=== PATIENT | male | born 1950 | race Caucasian/White ===

== ENCOUNTER 2017-01-13 15:08 | Emergency (ER) | payer BC ==
[~2017-01-13] VITALS: Ht 188 cm; Wt 165.4 kg
[2017-01-13] MEDS ORDERED: ARED (15:20)
[2017-01-13] MEDS ORDERED: ATEN25TA (15:20)
[2017-01-13] MEDS ORDERED: ASPI81CH PO (15:20)
[2017-01-13] MEDS ORDERED: HYDR25TA6 (15:20)
[2017-01-13] MEDS ORDERED: SIMV20TA2 (15:20)
[2017-01-13] MEDS ORDERED: CENTTAB (15:20)
[2017-01-13] MEDS ORDERED: METF500T13 (15:20)
[2017-01-13] MEDS ORDERED: SERT-138 (15:23)
[2017-01-13] MEDS ORDERED: PERCOCET 5MG/325MG TAB PO ONE (16:00)
[2017-01-13] MEDS ORDERED: PERCOCET 5MG/325MG TAB As Ordered ONE (16:01)
[2017-01-13 16:31] VITALS: BP 134/73
[2017-01-13] MEDS ORDERED: PERC5TAB12 PO (16:38)
--- NOTE | 2017-01-13 17:02 | REP ---
Pelvis and right hip: Three views: History: Nontraumatic right hip pain. Findings: AP and frog-leg views of the right hip are obtained along with an AP view of the pelvis. There is a benign exostosis superior to the acetabulum along the lateral cortex of the iliac bone. This measures approximately 3.2 cm in length. An accessory ossicle is seen at its tip superior and lateral to the hip articulation. Femoral head is smooth and rounded and hip joint spaces are preserved. There is some sclerotic change in the symphysis and a cyst is seen in the symphysis. Sacrum and SI joints are intact. There are mild degenerative disc changes L4-5. Impression: There is a benign appearing osteochondroma 3.2 cm in greatest diameter along the lateral cortex of the right iliac bone just above the acetabulum. No acute bony abnormality. Signed by Yonatan Diaz MD 01/13/2017 05:03 P
== END 2017-01-13 16:45 | disposition home or self-care (01) ==
LOC: M ED 15:08
DX: D16.8 Benign neoplasm of pelvic bones, sacrum and coccyx (principal); M70.61 Trochanteric bursitis, right hip; E11.9 Type 2 diabetes mellitus without complications; I10 Essential (primary) hypertension; E78.00 Pure hypercholesterolemia, unspecified; Z90.89 Acquired absence of other organs; Z87.891 Personal history of nicotine dependence; Z79.82 Long term (current) use of aspirin; Z79.899 Other long term (current) drug therapy

== ENCOUNTER → 2017-01-17 | Outpatient (REF) | payer BC ==
[~2017-01-17] MED LIST: ARED; ASPI81CH PO; ATEN25TA; CENTTAB; HYDR25TA6; METF500T13; PERC5TAB12 PO; SERT-138; SIMV20TA2
[2017-01-17 18:22] LABS: BLOOD UREA NITROGEN 15 MG/DL (7-18); CREATININE FOR GFR 0.91 MG/DL (0.70-1.30); GLOMERULAR FILTRATION RATE > 60.0 (>49)
== END ==
LOC: M LABDRAW1 15:56
PROVIDERS: ATTEND Physician Assistant
DX: M25.551 Pain in right hip (principal)

== ENCOUNTER 2017-05-26 14:10 | Inpatient (IN) | payer BC, MEDICARE ==
[~2017-05-26] VITALS: Ht 188 cm; Wt 127.5 kg
[2017-05-26] MEDS ORDERED: VENTAER (14:59)
[2017-05-26] MEDS ORDERED: AUGM875T28 PO (14:59)
[2017-05-26] MEDS ORDERED: IPRATROPIUM 0.5MG/ALBUTEROL 2.5MG INH SOL UD 3ML (DUONEB)(J7620) NEB ONE (16:45)
[2017-05-26] MEDS ORDERED: methylPREDNISolone INJ 125 MG/2 ML VIAL (J2930) IV ONE (16:45)
[2017-05-26] MEDS ORDERED: PIPERACILLIN/TAZOBACTAM SOD 4.5 GM in APPROPRIATE DILUENT 1 EA IV ONE (16:45)
[2017-05-26] MEDS ORDERED: ALBUTEROL SULFATE 2.5 MG/0.5 ML INH NEB SOLN INH ONE (16:45)
--- NOTE | 2017-05-26 16:55 | REP ---
Chest two views HISTORY: Shortness of breath Comparison: None A large left pleural effusion is present. Underlying atelectasis or infiltrate cannot be excluded. An increase in interstitial markings is present in the right lung likely representing chronic interstitial change. There is blunting of the right costophrenic angle due to a small pleural effusion. heart size cannot be evaluated. The pulmonary vasculature in the right lung is normal in appearance. The bony structure is intact. IMPRESSION: 1. Large left pleural effusion. Underlying atelectasis or infiltrate cannot be excluded. 2. There is an increase in interstitial markings in the right lung likely representing chronic interstitial change. 3. Small right pleural effusion. Signed by Ollie Hermosillo MD 05/26/2017 04:47 P
[2017-05-26 17:13] LABS: ABG BASE EXCESS 7.9 (-2.0-2.0); ABG HCO3 31.9 MEQ/L (22.0-26.0); ABG PARTIAL PRESSURE CO2 41.8 mmHg (35.0-45.0); ABG STANDARD HCO3 31.8 MEQ/L (22.0-26.0); ABG TOTAL CO2 33.2 MEQ/L (23.0-31.0); ABG pH (ARTERIAL) 7.501 UNITS (7.350-7.450)
[2017-05-26 17:33] LABS: BASO # 0.1 10^3/uL (0.0-0.2); BASO % 0.5 % (0.0-1.0); EOS # 0.2 10^3/uL (0.0-0.50); EOS % 1.6 % (0.0-3.0); IMMATURE GRANULOCYTE % 0.7 % (0-0); LYMPH # 1.8 10^3/uL (1.5-4.5); LYMPH % 15.8 % (24.0-44.0); MEAN CORPUSCULAR HEMOGLOBIN 29.3 pg (27.0-33.0); MEAN CORPUSCULAR HGB CONC 35.4 g/dl (32.0-36.5); MEAN CORPUSCULAR VOLUME 82.8 fl (80.0-96.0); MONO # 1.1 10^3/uL (0.0-0.8); MONO % 9.3 % (0.0-5.0); NEUTROPHILS # 8.1 10^3/uL (1.8-7.7); NEUTROPHILS % 72.1 % (36.0-66.0); PLATELET COUNT, AUTOMATED 473 10^3/uL (150-450); RED CELL DISTRIBUTION WIDTH 12.1 % (11.5-14.5); WHITE BLOOD COUNT 11.3 10^3/uL (4.0-10.0)
[2017-05-26 17:52] LABS: INR 1.05
[2017-05-26 18:00] LABS: ANION GAP 8 MEQ/L (8-16); BLOOD UREA NITROGEN 9 MG/DL (7-18); CALCIUM LEVEL 9.3 MG/DL (8.8-10.2); CARBON DIOXIDE LEVEL 35 MEQ/L (21-32); CHLORIDE LEVEL 90 MEQ/L (98-107); CREATININE FOR GFR 0.63 MG/DL (0.70-1.30); GLOMERULAR FILTRATION RATE > 60.0 (>49); GLUCOSE, FASTING 184 MG/DL (80-110); POTASSIUM SERUM 3.2 MEQ/L (3.5-5.1); SODIUM LEVEL 133 MEQ/L (136-145)
--- NOTE | 2017-05-26 18:02 | REP ---
CT study of the chest with out IV contrast: History: Abnormal chest x-ray. Comparison chest radiographs from earlier this date. No other comparison imaging. Findings: There is a large left pleural effusion opacifying much of the left hemithorax. This may be partially loculated as there is an area of partially aerated left upper lobe extending out to the chest wall at mid lateral chest level. There is a small quantity of pericardial fluid and a small right pleural effusion. There is some mediastinal lymphadenopathy in the pretracheal and subcarinal region. The largest of these nodes is a subcarinal node which measures 1.9 x 2.2 cm. There are air bronchograms in the atelectatic left lower lobe. There are several small pulmonary nodules in the remaining aerated left upper lobe along with this interstitial septal thickening. This may reflect edema or conceivably lymphangitic spread of tumor. There are multiple right lung nodules as well. These include to right lower lobe nodules measuring 1.0 and 1.2 cm and a ill-defined opacity in the right lower lobe measuring 2.1 cm in diameter. Multiple tiny sub-centimeter nodules are seen on the right. Bone window settings show no bony destructive lesion. There is fullness in the left adrenal gland which is not completely included in the imaging field of view. This measures up to 4 cm in greatest diameter. Impression: Large possibly loculated left pleural effusion. Mediastinal lymphadenopathy and pulmonary nodules consistent with metastatic disease. Small right pleural effusion and tiny pericardial effusion. Signed by Yonatan Diaz MD 05/28/2017 12:31 P
[2017-05-26 18:05] LABS: ALBUMIN 3.2 GM/DL (3.2-5.2); ALBUMIN/GLOBULIN RATIO 0.68 (1.00-1.93); ALKALINE PHOSPHATASE 77 U/L (45-117); ALT/SGPT 20 U/L (12-78); AST/SGOT 6 U/L (7-37); BILIRUBIN,DIRECT < 0.1 MG/DL (0.0-0.2); BILIRUBIN,TOTAL 0.4 MG/DL (0.2-1.0); THYROXINE (T4) 10.8 UG/DL (4.5-12.0); TOTAL PROTEIN 7.9 GM/DL (6.4-8.2)
[2017-05-26] MEDS ORDERED: SERT-138 PO (18:56)
[2017-05-26] MEDS ORDERED: VENTAER INH (18:56)
[2017-05-26] MEDS ORDERED: ASPI1TAB15 PO (18:56)
[2017-05-26] MEDS ORDERED: HYDR25TAB PO (18:56)
[2017-05-26] MEDS ORDERED: VITMTA PO (18:56)
[2017-05-26] MEDS ORDERED: AMOX875T2 PO (18:56)
[2017-05-26] MEDS ORDERED: METF500T13 PO (18:56)
[2017-05-26] MEDS ORDERED: HYDR5LIQ2 PO (18:56)
[2017-05-26] MEDS ORDERED: OCUVTAB4 PO (18:56)
[2017-05-26] MEDS ORDERED: METO1TAB32 PO (18:56)
[2017-05-26] MEDS ORDERED: SIMV20TA2 PO (18:56)
[2017-05-26] MEDS ORDERED: GLUCAGON FOR INJ 1 MG VIAL (J1610) SC PRN (19:15)
[2017-05-26] MEDS ORDERED: DEXTROSE 50% 50 ML SYRINGE IV PRN (19:15)
[2017-05-26] MEDS ORDERED: GLUCOSE 4 GM CHEW TABLET PO PRN (19:15)
[2017-05-26] MEDS ORDERED: ONDANSETRON 4MG/2ML VIAL (J2405) IV PRN (19:15)
[2017-05-26] MEDS ORDERED: PERCOCET 5MG/325MG TAB PO PRN (19:15)
[2017-05-26] MEDS ORDERED: POTASSIUM CHLORIDE 10 MEQ SR TABLET PO ONE (19:15)
[2017-05-26] MEDS ORDERED: GASTROGRAFIN SOLUTION 30ML (Q9963) PO ONE (20:00)
[2017-05-26] MEDS ORDERED: GASTROGRAFIN SOLUTION 30ML PO ONE (20:30)
[2017-05-26] MEDS ORDERED: PROHANCE 279.3MG/ML 15ML VIAL (A9576) As Ordered ONE (20:32)
--- NOTE | 2017-05-26 20:52 | HPEPDOC ---
General Date of Admission May 26, 2017 at 19:11 Primary Care Physician: JOHN CHINCHILLA M.D. Attending Physician: MIKEY MITCHELL MD Chief Complaint The patient is a 67-year-old male admitted with a reason for visit of Pleural Effusion On Left. History of Present Illness 67-year-old male with past medical history of hypertension, dyslipidemia, diabetes mellitus, and anxiety/depression presents to the ER with a chief complaint of worsening shortness of breath over the last 10 days. The patient states that he originally went to see his PCP Dr. Chinchilla on 05/17 and was prescribed Augmentin for his complaint of shortness of breath and cough. However , the patient's symptoms are not improved and he presents to the ER for further evaluation and management. During this time, the patient states that he has lost about 20 pounds over the last 6 months but notes that this has been intentional. The patient denies any complaints of fevers, chills, chest pain, palpitations, abdominal pain, lower extremity swelling, or any nausea/vomiting/ diarrhea. In the ER, a CT scan of the chest revealed large possibly loculated left pleural effusion with mediastinal lymphadenopathy and pulmonary nodules consistent with metastatic disease. The patient will be admitted to the hospitalist service, and a consult has been placed a thoracic surgery for further evaluation and monitoring. Home Medications Scheduled (Preservision Areds) 1 Tab Tab, 1 TAB PO BID, (Reported) Amoxicillin/Clavulanate Potas (Amoxicillin/Clavulanate P 875-125 mg) 1 Tab Tab, 875 MG PO BID, (Reported) Aspirin (Aspirin) 81 Mg Tab, 81 MG PO DAILY, (Reported) Hydrochlorothiazide (Hydrochlorothiazide) 25 Mg Tab, 25 MG PO DAILY, (Reported) Metformin Hydrochloride (Metformin HCl) 500 Mg Tab, 500 MG PO BID, (Reported) Metoprolol Succinate (Metoprolol Succinate ER) 25 Mg Tab, 25 MG PO DAILY, ( Reported) Multivitamins *[facility] STOCKED* (Thera M Plus *[facility] STOCKED*) 1 Tab Tab, 1 TAB PO DAILY, (Reported) Sertraline HCl (Sertraline HCl) 100 Mg Tab, 100 MG PO DAILY, (Reported) Simvastatin (Simvastatin) 20 Mg Tab, 20 MG PO QHS, (Reported) Scheduled PRN Albuterol Sulfate (Ventolin Hfa) 108 Mcg/Act Aer, 2 SPRAYS INH QID PRN for SHORTNESS OF BREATH, (Reported) Chlorphenir/Hydrocod Polistir (Hydrocodone Polistirex/Ch 10-8 mg/5Ml) 1 Liq Liq , 5 ML PO BID PRN for COUGH, (Reported) Allergies Coded Allergies: No Known Allergies (Verified , 03/09/05) Past Medical History Medical History As noted in HPI. Surgical History Left knee meniscal repair. Family History Father had stomach cancer in his 70s. Social History * Smoker: former Smoker (smoked 1-1/2-2 packs per day for 20+ years, quit 20 years ago) Alcohol: Denies Drugs: denies Review of Symptoms Other systems 10 point review of systems negative unless otherwise specified in HPI. Physical Examination General Exam: Positive: Alert, Cooperative, No Acute Distress ENT Exam: Positive: Atraumatic, Mucous membr. moist/pink Neck Exam: Negative: JVD Chest Exam: Positive: Diminished (diminished breath sounds on the left side.) Heart Exam: Positive: Rate Normal, Normal S1, Normal S2 Abdomen Exam: Positive: Soft Extremity Exam: Negative: Tenderness, Swelling Psych Exam: Positive: Oriented x 3 Vital Signs Vital Signs Date Time Temp Pulse Resp B/P (MAP) Pulse Ox O2 Delivery O2 Flow Rate FiO2 05/26/17 19:15 109 18 125/78 (94) 96 05/26/17 18:45 Nasal Cannula 4.0 05/26/17 14:11 96.6 Laboratory Data Labs 24H Laboratory Tests 2 05/26/17 16:44: Blood Gas Bicarbonate Standard 31.8H, Arterial Blood pH 7.501H, Arterial Blood Partial Pressure CO2 41.8, Arterial Blood Partial Pressure O2 83.0, Arterial Blood Total CO2 33.2H, Arterial Blood HCO3 31.9H, Arterial Blood Base Excess 7.9H, Arterial Blood Oxygen Saturation 97.0 05/26/17 17:02: Immature Granulocyte % (Auto) 0.7H, White Blood Count 11.3H, Red Blood Count 5.18, Hemoglobin 15.2, Hematocrit 42.9, Mean Corpuscular Volume 82.8, Mean Corpuscular Hemoglobin 29.3, Mean Corpuscular Hemoglobin Concent 35.4, Red Cell Distribution Width 12.1, Platelet Count 473H, Neutrophils (%) (Auto) 72.1H, Lymphocytes (%) (Auto) 15.8L, Monocytes (%) (Auto) 9.3H, Eosinophils (%) (Auto) 1.6, Basophils (%) (Auto) 0.5, Neutrophils # (Auto) 8.1H, Lymphocytes # (Auto) 1.8, Monocytes # (Auto) 1.1H, Eosinophils # (Auto) 0.2, Basophils # (Auto) 0.1, Immature Granulocyte # (Auto) 0.1H, Nucleated Red Blood Cells % (auto) 0.0, Prothrombin Time 13.8, Prothromb Time International Ratio 1.05, Anion Gap 8, Glomerular Filtration Rate > 60.0, Lactic Acid Level 1.9, Blood Urea Nitrogen 9 , Creatinine 0.63L, Sodium Level 133L, Potassium Level 3.2L, Chloride Level 90L , Carbon Dioxide Level 35H, Calcium Level 9.3, Total Creatine Kinase 47, Aspartate Amino Transf (AST/SGOT) 6L, Alanine Aminotransferase (ALT/SGPT) 20, Alkaline Phosphatase 77, Total Bilirubin 0.4, Direct Bilirubin < 0.1, Creatine Kinase MB 1.0, Creatine Kinase MB Relative Index 2.12, Troponin I < 0.02, NT-Pro -B-Type Natriuretic Peptide 135H, Total Protein 7.9, Albumin 3.2, Albumin/ Globulin Ratio 0.68L, Thyroid Stimulating Hormone (TSH) 2.080, Thyroxine (T4) 10.8 CBC/BMP Laboratory Tests 05/26/17 17:02 Red Blood Count 5.18, Mean Corpuscular Volume 82.8, Mean Corpuscular Hemoglobin 29.3, Mean Corpuscular Hemoglobin Concent 35.4, Red Cell Distribution Width 12.1 , Neutrophils (%) (Auto) 72.1 H, Lymphocytes (%) (Auto) 15.8 L, Monocytes (%) ( Auto) 9.3 H, Eosinophils (%) (Auto) 1.6, Basophils (%) (Auto) 0.5, Neutrophils # (Auto) 8.1 H, Lymphocytes # (Auto) 1.8, Monocytes # (Auto) 1.1 H, Eosinophils # (Auto) 0.2, Basophils # (Auto) 0.1, Calcium Level 9.3, Total Creatine Kinase 47 Microbiology Microbiology 05/26/17 Blood Culture, Received Pending 05/26/17 Blood Culture, Received Pending 12/1/17 Gram Stain, Received Pending 05/26/17 Sputum Culture, Received Pending 05/26/17 Influenza Virus Type A Antigen - Final, Complete 05/26/17 Influenza Virus Type B Antigen - Final, Complete Plan / VTE VTE Prophylaxis Ordered?: Yes Plan Plan SOB 2/2 Large possibly loculated left pleural effusion, pulmonary nodules consistent with metastatic disease CT chest noted I did extensively discuss the results with the patient and his significant other at the bedside. All questions answered to their satisfaction At this time, we will treat the patient empirically for a community-acquired pneumonia In addition, thoracic surgery has been consulted for possible drainage of the aforementioned effusion and cytologic studies will be sent thereafter In the meantime, a CT scan of the abdomen/pelvis, MRI of the brain, and bone scan has been ordered as part of a metastatic workup. We will continue to monitor the patient's progress Hypertension stable Continue metoprolol Dyslipidemia Continue statin Diabetes mellitus Continue insulin sliding scale Anxiety/depression, stable Continue Zoloft DVT prophylaxis Heparin subcutaneous The patient will be admitted under the service of Dr. Mitchell, who will begin to follow the patient on 05/27/17 at 7 AM. ALFRED NDIAYE MD May 26, 2017 20:51
--- NOTE | 2017-05-26 21:30 | REPUSA ---
MRI of the brain. Clinical history: metastatic disease. Technique: Multiecho multiplanar MRI images of the brain were obtained before and after administratio n of contrast. Diffusion weighted images with ADC mapping was also obtained. Findings: The ventricles and sulci are symmetric bilaterally. The brain parenchyma demonstrates uniform and nor mal signal on all sequences. There is no midline shift, mass effect, or extra-axial fluid collection. The midline intracranial structures do not demonstrate any gross abnormalities. The cervical cranial junction is intact. The orbits are unremarkable. The visualized paranasal sinuses and mastoid air ce lls are clear. The osseous structures and superficial soft tissues are unremarkable. The vascular str uctures demonstrate appropriate flow voids. There are no abnormal enhancing mass lesions appreciated. Impression: Normal MRI of the Brain.
[2017-05-26] MEDS ORDERED: ISOVUE-370 76% 100ML VIAL (Q9967) As Ordered ONE (23:23)
[2017-05-26] MEDS: SIMVASTATIN 20 MG TAB PO SCH (23:38)
[2017-05-26] MEDS: CEFTRIAXONE SOD 1 GM in APPROPRIATE DILUENT 1 EA IV SCH (23:39)
[2017-05-26] MEDS: OCUVITE 1 TAB PO SCH (23:45)
[2017-05-27] VITALS: BP 144/79
[2017-05-27] MEDS: HumaLOG INSULIN (NovoLOG) PER UNIT SC SCH ×5 (00:07→21:14)
[2017-05-27] MEDS: AZITHROMYCIN INJ 500 MG, VIAL MATE ADAPTER 1 EACH in D5W 250 ML IV SCH ×2 (00:54→21:08)
[2017-05-27 04:00] VITALS: BP_SYST 144; BP_SYST 149; BP_DIAS 79
[2017-05-27] MEDS: HEPARIN SOD (PORCINE) 5000 UNITS/ML VIAL SC SCH ×3 (04:57→21:08)
[2017-05-27 05:35] LABS: MEAN CORPUSCULAR HEMOGLOBIN 29.4 pg (27.0-33.0); MEAN CORPUSCULAR HGB CONC 35.6 g/dl (32.0-36.5); MEAN CORPUSCULAR VOLUME 82.6 fl (80.0-96.0); PLATELET COUNT, AUTOMATED 465 10^3/uL (150-450); RED CELL DISTRIBUTION WIDTH 12.1 % (11.5-14.5); WHITE BLOOD COUNT 8.7 10^3/uL (4.0-10.0)
[2017-05-27 06:03] LABS: ALBUMIN 2.9 GM/DL (3.2-5.2); ALBUMIN/GLOBULIN RATIO 0.62 (1.00-1.93); ALKALINE PHOSPHATASE 72 U/L (45-117); ALT/SGPT 21 U/L (12-78); ANION GAP 7 MEQ/L (8-16); AST/SGOT 7 U/L (7-37); BILIRUBIN,TOTAL 0.4 MG/DL (0.2-1.0); BLOOD UREA NITROGEN 10 MG/DL (7-18); CALCIUM LEVEL 9.5 MG/DL (8.8-10.2); CARBON DIOXIDE LEVEL 36 MEQ/L (21-32); CHLORIDE LEVEL 90 MEQ/L (98-107); GLOMERULAR FILTRATION RATE > 60.0 (>49); GLUCOSE, FASTING 247 MG/DL (80-110); MAGNESIUM LEVEL 2.3 MG/DL (1.8-2.4); POTASSIUM SERUM 3.2 MEQ/L (3.5-5.1); SODIUM LEVEL 133 MEQ/L (136-145); TOTAL PROTEIN 7.6 GM/DL (6.4-8.2)
[2017-05-27] MEDS ORDERED: POTASSIUM CHLORIDE 10 MEQ SR TABLET PO ONE (06:15)
--- NOTE | 2017-05-27 07:37 | IPNPDOC ---
Text Note Date of Service The patient was seen on 05/27/17. NOTE Subjective: Patient seen and examined at bedside. No new medical complaints. Still complains of cough occasionally productive of clear sputum. Objective: General: NAD, lying comfortably in bed HEENT: NC/AT, EOMI Lungs: diminished breath sounds left Heart: +S1S2, RRR Abd: soft, NT, obese, +BS Ext: no edema Assessment/Plan: 67 yo male of shortness of breath, found to have large, possibly loculated pleural effusion with multiple pulmonary nodules consistent with metastatic disease. #SOB - 2/2 Large left pleural effusion - supplemental oxygen as needed - titrate maintain O2 sats>90% - CTS c/s pending #pulmonary nodules - concern for metastatic disease - champagne scan pending - o/p colonoscopy #PNA - continue with empiric antimicrobial therapy #DVT prophylaxis - heparin SC #HTN - continue metoprolol #dyslipidemia - continue statin therapy #DM - ISS, modified diet #Anxiety/depression - Continue Zoloft as per home regimen VS,Fishbone, I+O VS, Fishbone, I+O Laboratory Tests 05/26/17 17:02 Red Blood Count 5.18, Mean Corpuscular Volume 82.8, Mean Corpuscular Hemoglobin 29.3, Mean Corpuscular Hemoglobin Concent 35.4, Red Cell Distribution Width 12.1 , Neutrophils (%) (Auto) 72.1 H, Lymphocytes (%) (Auto) 15.8 L, Monocytes (%) ( Auto) 9.3 H, Eosinophils (%) (Auto) 1.6, Basophils (%) (Auto) 0.5, Neutrophils # (Auto) 8.1 H, Lymphocytes # (Auto) 1.8, Monocytes # (Auto) 1.1 H, Eosinophils # (Auto) 0.2, Basophils # (Auto) 0.1, Calcium Level 9.3, Total Creatine Kinase 47 05/27/17 04:53 Red Blood Count 4.93, Mean Corpuscular Volume 82.6, Mean Corpuscular Hemoglobin 29.4, Mean Corpuscular Hemoglobin Concent 35.6, Red Cell Distribution Width 12.1 , Calcium Level 9.5, Aspartate Amino Transf (AST/SGOT) 7, Alanine Aminotransferase (ALT/SGPT) 21, Alkaline Phosphatase 72, Total Bilirubin 0.4, Total Protein 7.6, Albumin 2.9 L Vital Signs Date Time Temp Pulse Resp B/P (MAP) Pulse Ox O2 Delivery O2 Flow Rate FiO2 05/27/17 04:00 97.4 96 20 149/79 (102) 95 Room Air 05/27/17 00:00 2.0 MIKEY MITCHELL MD May 27, 2017 07:37
[2017-05-27 08:00] VITALS: BP 126/83
[2017-05-27] MEDS: MOM 30ML SUSPENSION UDC PO SCH (09:00)
[2017-05-27] MEDS: MULTIVITAMINS/MINERALS THERAP 1 TAB PO SCH (09:12)
[2017-05-27] MEDS: METOPROLOL SUCC *XL* 25MG TAB (TopROL *XL*) PO SCH (09:12)
[2017-05-27] MEDS: OCUVITE 1 TAB PO SCH ×2 (09:12→21:08)
[2017-05-27] MEDS: SERTRALINE 100 MG TAB PO SCH (09:12)
--- NOTE | 2017-05-27 10:16 | REP ---
ADULT BONE SURVEY, 18 VIEWS: HISTORY: Evaluate for metastases. SKULL: There is no acute fracture or bone lesion. The sinuses are clear. CERVICAL SPINE: There is no acute fracture or subluxation. The C3-4 through C7-T1 intervertebral discs are decreased in height consistent with disc degeneration. Osteophytes are present on C3 through C7. BILATERAL RIBS: The lateral ribs are poorly visualized. There is no acute fracture or bone lesion. There is almost complete opacification of the left hemithorax. PELVIS: There is no acute fracture or dislocation. There is narrowing of the joint spaces. FEMURS: There is no acute fracture or dislocation. There is narrowing of the hip and knee joint spaces. HUMERUS: An ill-defined cystic lesion with septations is present in the head of the left humerus. An exostosis is present along the lateral aspect of the mid left humerus. There is narrowing of the shoulder joint spaces. THORACIC SPINE: There is no acute fracture or subluxation. The intervertebral discs are normal in height. Osteophytes are present in the lower thoracic spine. LUMBAR SPINE: There is no acute fracture or subluxation. The intervertebral discs are decreased in height consistent with disc degeneration. Osteophytes are present in L1 and L4 through S1. There is spina bifida occulta of S1. IMPRESSION: Bone survey as described above. CT of the proximal left humerus may be helpful for further evaluation. Signed by Ollie Hermosillo MD 05/27/2017 10:43 A
[2017-05-27] MEDS ORDERED: MIDAZOLAM INJ 2 MG/2 ML VIAL (J2250) As Ordered ONE ×2 (10:19→10:20)
[2017-05-27] MEDS ORDERED: FLUMAZENIL 0.5 MG/5 ML VIAL As Ordered ONE (10:19)
[2017-05-27] MEDS ORDERED: LIDOCAINE 1% MDV 20ML VIAL As Ordered ONE (10:20)
--- NOTE | 2017-05-27 10:48 | ECGEPIP ---
Stationary ECG Study [facility] - ED Test Date: 2017-05-26 Pat Name: LEANDRO QUEZADA Department: Room: [place] [address] Gender: M Color Checker: RODRIGUE : 1950 Requested By: Evette Ying Order Number: [id number] Reading MD: Umm Springer Measurements Intervals [place] Rate: 108 P: -10 GA: 167 QRS: -36 QRSD: 81 T: -28 QT: 328 QTc: 441 Interpretive Statements SINUS TACHYCARDIA INFERIOR MYOCARDIAL INFARCTION, PROBABLY OLD PRWP NSTTW ABNORMALITY NO PRIOR FOR COMPARISON Electronically Signed On 05-27-2017 10:48:14 EST by Umm Springer
[2017-05-27] MEDS ORDERED: NORCO, ANEXSIA 5/325MG TABLET (HYDROcodone/ACETAMINOPHEN) PO PRN (11:00)
[2017-05-27] MEDS ORDERED: BISACODYL 10 MG SUPP PR PRN (11:00)
--- NOTE | 2017-05-27 11:21 | REP ---
PORTABLE CHEST, ONE VIEW: HISTORY: Pleural effusion. COMPARISON: 05/26/2017 Patchy density is present in the left upper and lower lobes consistent with atelectasis or infiltrate. An increase in interstitial markings is present in the right lung consistent with chronic interstitial change. A chest tube is present in the left hemithorax. There has been a decrease in the left pleural effusion. There is no definite pneumothorax. There is blunting of the right costophrenic angle due to a small pleural effusion. IMPRESSION: 1. Left upper and lower lobe atelectasis or infiltrate. 2. The patient is status post left chest tube insertion. There is no pneumothorax. 3. Left pleural effusion decreased in size. 4 . Small right pleural effusion. Signed by Ollie Hermosillo MD 05/27/2017 12:33 P
[2017-05-27 11:54] LABS: ABG BASE EXCESS 7.6 (-2.0-2.0); ABG PARTIAL PRESSURE CO2 43.6 mmHg (35.0-45.0); ABG PARTIAL PRESSURE O2 63.3 mmHg (75.0-100.0); ABG STANDARD HCO3 31.3 MEQ/L (22.0-26.0); ABG TOTAL CO2 33.3 MEQ/L (23.0-31.0); ABG pH (ARTERIAL) 7.483 UNITS (7.350-7.450)
[2017-05-27 12:00] VITALS: BP 135/92
[2017-05-27 12:03] LABS: BF MONONUCLEAR CELL % 58.4 % (0-0); BF POLYMORPHONUCLEAR CELL % 41.6 % (0-0); RBC BODY FLUID 216 10^3/uL (<2); WBC BODY FLUID 817 /uL (0-10)
[2017-05-27 12:04] LABS: LDH, BODY FLUID 1596 U/L (NOT ESTABLISHED); TOTAL PROTEIN, BODY FLUID 5.8 G/DL (NOT ESTABLISHED)
[2017-05-27 12:40] LABS: BF DIFF IF INDICATED? YES (NO)
[2017-05-27] MEDS: KCL 20MEQ IN D5/NS 1000ML 1,000 ML IV SCH (12:47)
[2017-05-27] MEDS: PANTOPRAZOLE 40MG TAB (PROTONIX) PO SCH (12:47)
[2017-05-27] MEDS: KETOROLAC 30 MG/ML VIAL (J1885) IV SCH ×3 (12:47→22:47)
[2017-05-27] MEDS: DOCUSATE SODIUM 100 MG CAP PO SCH ×2 (13:39→21:08)
[2017-05-27 16:00] VITALS: BP 140/32
[2017-05-27 20:00] VITALS: BP 134/74
[2017-05-27] MEDS: SIMVASTATIN 20 MG TAB PO SCH (21:08)
[2017-05-27] MEDS: CEFTRIAXONE SOD 1 GM in APPROPRIATE DILUENT 1 EA IV SCH (22:46)
[2017-05-28] VITALS: BP 143/79
[2017-05-28] MEDS: KCL 20MEQ IN D5/NS 1000ML 1,000 ML IV SCH ×2 (03:16→13:34)
[2017-05-28 04:00] VITALS: BP 143/95
[2017-05-28 04:50] LABS: MEAN CORPUSCULAR HGB CONC 34.3 g/dl (32.0-36.5); MEAN CORPUSCULAR VOLUME 84.6 fl (80.0-96.0); PLATELET COUNT, AUTOMATED 398 10^3/uL (150-450); RED CELL DISTRIBUTION WIDTH 12.3 % (11.5-14.5); WHITE BLOOD COUNT 11.2 10^3/uL (4.0-10.0)
[2017-05-28 05:13] LABS: ALBUMIN 2.6 GM/DL (3.2-5.2); ALBUMIN/GLOBULIN RATIO 0.63 (1.00-1.93); ALKALINE PHOSPHATASE 71 U/L (45-117); ALT/SGPT 18 U/L (12-78); ANION GAP 9 MEQ/L (8-16); AST/SGOT 8 U/L (7-37); BILIRUBIN,TOTAL 0.4 MG/DL (0.2-1.0); CALCIUM LEVEL 8.6 MG/DL (8.8-10.2); CARBON DIOXIDE LEVEL 32 MEQ/L (21-32); CHLORIDE LEVEL 95 MEQ/L (98-107); CREATININE FOR GFR 0.85 MG/DL (0.70-1.30); GLOMERULAR FILTRATION RATE > 60.0 (>49); GLUCOSE, FASTING 205 MG/DL (80-110); POTASSIUM SERUM 3.3 MEQ/L (3.5-5.1); SODIUM LEVEL 136 MEQ/L (136-145); TOTAL PROTEIN 6.7 GM/DL (6.4-8.2)
[2017-05-28 05:29] LABS: BLOOD UREA NITROGEN 18 MG/DL (7-18)
[2017-05-28] MEDS: HEPARIN SOD (PORCINE) 5000 UNITS/ML VIAL SC SCH ×3 (05:39→21:38)
[2017-05-28] MEDS: KETOROLAC 30 MG/ML VIAL (J1885) IV SCH ×4 (05:41→23:49)
[2017-05-28] MEDS ORDERED: POTASSIUM CHLORIDE 10 MEQ SR TABLET PO ONE (06:45)
[2017-05-28 06:50] LABS: MAGNESIUM LEVEL 2.1 MG/DL (1.8-2.4)
[2017-05-28 07:50] VITALS: BP 137/81
[2017-05-28] MEDS: OCUVITE 1 TAB PO SCH ×2 (08:14→21:37)
[2017-05-28] MEDS: MOM 30ML SUSPENSION UDC PO SCH (08:14)
[2017-05-28] MEDS: DOCUSATE SODIUM 100 MG CAP PO SCH ×2 (08:14→21:38)
[2017-05-28] MEDS: PANTOPRAZOLE 40MG TAB (PROTONIX) PO SCH (08:14)
[2017-05-28] MEDS: SERTRALINE 100 MG TAB PO SCH (08:14)
[2017-05-28] MEDS: MULTIVITAMINS/MINERALS THERAP 1 TAB PO SCH (08:15)
[2017-05-28] MEDS: METOPROLOL SUCC *XL* 25MG TAB (TopROL *XL*) PO SCH (08:15)
--- NOTE | 2017-05-28 08:18 | IPNPDOC ---
Text Note Date of Service The patient was seen on 05/28/17. NOTE Subjective: Patient seen and examined at bedside. No new medical complaints. Complains of some mild discomfort at chest tube site. Denies any worsening shortness of breath. Objective: General: NAD, lying comfortably in bed HEENT: NC/AT, EOMI Lungs: diminished breath sounds left, chest tube in place left anterolateral chest, draining serosanguineous fluid Heart: +S1S2, RRR Abd: soft, NT, obese, +BS Ext: no edema Assessment/Plan: 67 yo male of shortness of breath, found to have large, possibly loculated pleural effusion with multiple pulmonary nodules consistent with metastatic disease s/p chest tube placement. #SOB - 2/2 Large left pleural effusion s/p chest tube placement - pathology pending - appears to be exudative - supplemental oxygen as needed - titrate maintain O2 sats>90% - CTS c/s appreciated #pulmonary nodules - concern for metastatic disease - champagne scan pending - o/p colonoscopy - last colonoscopy was 10 years ago - WNL as per patient - family hx of cancer - mother bladder CA/smoker dx in her 80s; father gastric cancer? diagnosed in his 70s #PNA - continue with empiric antimicrobial therapy - cultures pending; MRSA screen pending #DVT prophylaxis - heparin SC #HTN - continue metoprolol #dyslipidemia - continue statin therapy #DM - ISS, modified diet #Anxiety/depression - Continue Zoloft as per home regimen Dispo: continue with CT drainage, follow up CTS, path results pending, o/p colonoscopy VS,Fishbone, I+O VS, Fishbone, I+O Laboratory Tests 05/28/17 04:28 Red Blood Count 4.73, Mean Corpuscular Volume 84.6, Mean Corpuscular Hemoglobin 29.0, Mean Corpuscular Hemoglobin Concent 34.3, Red Cell Distribution Width 12.3 , Calcium Level 8.6 L, Aspartate Amino Transf (AST/SGOT) 8, Alanine Aminotransferase (ALT/SGPT) 18, Alkaline Phosphatase 71, Total Bilirubin 0.4, Total Protein 6.7, Albumin 2.6 L Vital Signs Date Time Temp Pulse Resp B/P (MAP) Pulse Ox O2 Delivery O2 Flow Rate FiO2 05/28/17 07:50 97.5 99 20 137/81 (99) 94 Nasal Cannula 2.0 I&O- Last 24 Hours up to 6 AM 05/29/17 06:00 Intake Total 0 ml Output Total 0 ml Balance 0 ml MIKEY MITCHELL MD May 28, 2017 08:18
--- NOTE | 2017-05-28 09:10 | CR ---
DATE OF CONSULTATION: 05/27/2017 The patient is seen at the request of the hospitalist service and the emergency room service, Dr. Evette Gagnon for a pleural effusion and increasing shortness of breath. HISTORY OF THE PRESENT ILLNESS: The patient is a 67-year-old white male whose story starts around 05/17/2017 when he developed a cough. He saw his primary care physician who gave him two courses of antibiotics. He states that he was feeling a bit better, but then 48 hours ago started to experience shortness of breath. Prior to that, he had a cough with white sputum production but no fever, chills or sweats. He has lost about 19 pounds in weight, but he has been trying to do so by eating less bread. There is no chest pain, no chest discomfort. There is no dysphagia. There is no hemoptysis with his cough. The cough is fairly chronic, and, indeed, he has paroxysms of coughing. In the last 2 or so weeks, he has been resting sleeping in a chair and recliner as when he lays down, he gets much more frequent paroxysms of cough, which are more forceful in nature. He has not woken up short of breath. PAST MEDICAL ILLNESSES: Hypertension. Diabetes. PAST SURGERIES: Left knee meniscus repair. A tonsillectomy as a child. Pilonidal cyst drainage. MEDICATIONS AT HOME: - amoxicillin 875 mg by mouth twice a day - aspirin 81 mg daily - hydrochlorothiazide 25 mg daily - metformin 500 mg twice a day - metoprolol 25 mg daily - multivitamins daily - sertraline 100 mg daily - simvastatin 20 mg nightly ALLERGIES: None. TRAVEL HISTORY: He has traveled to [place] and to [place], nothing to the [facility] or to the [facility]. No foreign travel. EXPOSURES: He has three dogs at home. No birds and no cats. 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 Has had a few exposures to asbestos; in particular, remembers sawing a muffler in half which had asbestos within it. HABITS: Smoked 1-1/2 packs a day of [place] and [place]. Quit 20 years ago. Does not consume alcohol and quit 20 years ago. No illicit drugs. FAMILY HISTORY: Father of stomach cancer in his 70s, and there is a history of alcoholism in his family. REVIEW OF SYSTEMS: CONSTITUTIONAL: See history of the present illness. He has a 19-pound weight loss, supposedly intentional. EYES: Without diplopia, without transient monocular blindness, without prior jaundice. NOSE: Without epistaxis. MOUTH: Has upper dentures Lower teeth are in place. RESPIRATORY: See history of the present illness. CARDIAC: See history of the present illness. Denies palpitations, tachycardias. Does note some occasional peripheral edema, which comes and goes. His socks have been a bit tight lately. No intermittent claudication. No prior myocardial infarctions. GASTROINTESTINAL: Without nausea, vomiting, diarrhea, constipation, melena, hematochezia, hematemesis, dysphagia or abdominal pain. GENITOURINARY: Without dysuria, hematuria or prior history of renal stones. NEUROLOGIC: Without paresthesias, paralyses or prior seizures. ENDOCRINE: With diabetes, without thyroid disease. PSYCHIATRIC: Without pathological depressions, anxieties or psychoses. Is on sertraline. LYMPHATICS: Without lumps and bumps in his neck, axilla or groins. HEMATOLOGIC: Without prolonged bleeding times. PHYSICAL EXAMINATION: Well developed, well nourished, obese white male, somewhat short of breath, sitting at 30 degrees. VITAL SIGNS: Temperature is 98.0 with a heart rate of 96 and is sinus rhythm, respiratory rate of 20 without the use of accessory muscles who is 95% saturated on room air and whose blood pressure is 149/79. EYES: Pupils equal, round and reactive to light. Extraocular motor intact. Sclerae nonicteric. NOSE: Without deformity. HEAD: Normocephalic. MOUTH: Shows his mucous membranes to be pink and moist. Lips and commissures without lesions. There is no thrush. Lower teeth seem to be in fairly good repair. Upper teeth are replacement dentures. NECK: Neck is supple. There is no jugular venous distention. No subcutaneous emphysema. Trachea is midline. There is no thyromegaly or lymphadenopathy. He has 2+ carotid upstrokes without bruits. LUNGS: Show decreased breath sounds on the left side, and he has a dull percussion note on the left side. He has full e to a egophony in the lower left hemithorax. Right lung sounds show normal vesicular sounds. Percussion note is full to the diaphragm on the right. CARDIAC EXAM: Without murmurs, clicks, gallops or rubs. I cannot feel his point of maximum impulse (PMI). S1, S2 are normal. ABDOMEN: Soft, nontender. Bowel sounds are positive. There is no hepatomegaly. No costovertebral angle tenderness. There are no aortic bruits or renal bruits, and there are no pulsatile masses. EXTREMITIES: Show trace pretibial edema on both sides. Dorsalis pedis pulses are full. There is no calf tenderness. No differential swelling of the upper extremities. SKIN: Warm, dry and perfused without cyanosis or mottling, including that of the nail beds and the knees. NEUROLOGIC: Shows II-XII intact along with gross motor and gross sensation intact. Gait is not tested. PSYCHIATRIC: Shows him to be awake and alert, oriented times three with appropriate mood and affect and conversational. His white count today is 8.7, down from 11.3 on admission yesterday. Hemoglobin and hematocrit is 14.5 and 40.7, slightly down from 15.2 and 42.9. Platelet count is 465. Differential yesterday showed 72% neutrophils, 15% lymphocytes, 9% monocytes. There are no immature forms, no toxic granulations. Electrolytes this morning show a sodium of 133 with a potassium of 3.2. BUN and creatinine are 10 and 0.70. Glucose is 247 with a calcium of 9.5 and a corresponding albumin of 2.9. AST and ALT are normal as is his bilirubin. TSH and thyroxine are normal. PT/INR are 13.8 and 1.05 respectively. Urinalysis shows 1+ glucose, 1+ protein, but negative for leukocyte esterase. His chest x-ray yesterday taken in the emergency room shows almost complete opacification of the left side with some aeration in the upper hemithorax. His CT scan yesterday, also done in the emergency room, again confirms complete opacification of the chest. He has compression of the left lower lobe and part of the lingula. There looks to be lobar septal thickening, which I cannot tell if it is fibrosis or just fluid. The lobules are polygonal. There is some mediastinal lymphadenopathy paratracheally along the vena cava and also subcarinally. The CT is done without contrast. His adrenals look as if there is a mass on the left adrenal whose Hounsfield units look to be between 18 and 25, probably representing an adenoma. The right adrenal has a normal configuration. I see no liver lesions. IMPRESSION: 1. Large pleural effusion, unknown origin. 2. Possible prior pneumonia, at least treated as such. 3. Diabetes. 4. Hypertension. 5. Hypercholesterolemia. PLAN AND DISCUSSION: I am not sure where the effusion is coming from. He certainly has a smoking history but quit 20 years ago. This could be secondary to malignancy or it could be secondary to inflammation and/or infection. I am bit concerned about the appearance of the left upper lobe with the thickened lobule septa. I think it is fluid, but it could be lymphangitic spread. PLAN AND DISCUSSION: I will place a chest tube and drain his chest, and send the fluid off for all the requisite studies. After lung reexpands, will do another chest CT to look at what is underlying the lung.
--- NOTE | 2017-05-28 09:45 | REP ---
Chest two views HISTORY: Pleural effusion Comparison: 05/27/2017 Patchy density is present in the left upper lower lobes consistent with atelectasis or infiltrate unchanged compared to the previous study. An increase in interstitial markings is present in the right lung consistent with chronic interstitial change. A chest tube is present in the left hemithorax. A small left pleural effusion is present unchanged compared to the previous study. A small right pleural effusion is present. The pulmonary vasculature is normal in appearance. The bony structure is intact. IMPRESSION: 1. Left upper and lower lobe atelectasis or infiltrate unchanged compared to the previous study. 2. Small left pleural effusion unchanged compared to the previous study. Left chest tube is present. 3. Chronic interstitial change. 4. Small right pleural effusion. Signed by Ollie Hermosillo MD 05/28/2017 09:36 A
[2017-05-28] MEDS: HumaLOG INSULIN (NovoLOG) PER UNIT SC SCH ×4 (10:31→21:00)
--- NOTE | 2017-05-28 11:58 | RO ---
DATE OF PROCEDURE: 05/27/2017 PREPROCEDURE DIAGNOSES: Left pleural effusion. POSTPROCEDURE DIAGNOSES: Left pleural effusion. OPERATIVE PROCEDURE: Insertion of left lateral chest tube. SURGEON: Demetrius Espitia MD TARGETING ACQUISITION OFFICER: ANESTHESIA: Conscious sedation. FINDINGS: Chest tube drained over 3000 mL of serosanguineous fluid. Fluid was sent for the requisite studies including hematologies, chemistries, cytologies, and microbiologies. DESCRIPTION OF PROCEDURE: Under satisfactory monitored sedation eventually achieved with 3 mg of Versed, the patient prepped and draped in the usual sterile fashion. A position approximately 5 cm below the nipple was chosen and incision was made after infiltrating with 1% Xylocaine through the skin, subcutaneous tissue, fascia, muscle and pleura. A tunnel was created in the chest without difficulty. A #24 chest tube was placed without difficulty. The above findings were noted. Chest tube was secured to the chest wall with #2-0 [place] suture. It was connected to the Pleur-evac and secured. The patient tolerated the procedure and a chest x-ray is pending.
[2017-05-28 12:00] VITALS: BP 130/75
[2017-05-28 16:00] VITALS: BP 118/83
[2017-05-28 20:00] VITALS: BP 139/82
[2017-05-28] MEDS: SIMVASTATIN 20 MG TAB PO SCH (21:38)
[2017-05-28] MEDS: AZITHROMYCIN INJ 500 MG, VIAL MATE ADAPTER 1 EACH in D5W 250 ML IV SCH (21:38)
[2017-05-28] MEDS: PIPERACILLIN/TAZOBACTAM SOD 3.375 GM in APPROPRIATE DILUENT 1 EA IV SCH (23:50)
[2017-05-29] VITALS (7 sets, daily range): BP systolic 127–154; BP diastolic 68–85
[2017-05-29 05:09] LABS: MEAN CORPUSCULAR HEMOGLOBIN 28.9 pg (27.0-33.0); MEAN CORPUSCULAR HGB CONC 33.9 g/dl (32.0-36.5); MEAN CORPUSCULAR VOLUME 85.3 fl (80.0-96.0); PLATELET COUNT, AUTOMATED 383 10^3/uL (150-450); RED CELL DISTRIBUTION WIDTH 12.1 % (11.5-14.5); WHITE BLOOD COUNT 9.8 10^3/uL (4.0-10.0)
[2017-05-29 05:30] LABS: ALBUMIN 2.5 GM/DL (3.2-5.2); ALKALINE PHOSPHATASE 62 U/L (45-117); ALT/SGPT 16 U/L (12-78); ANION GAP 6 MEQ/L (8-16); AST/SGOT 8 U/L (7-37); BILIRUBIN,TOTAL 0.4 MG/DL (0.2-1.0); BLOOD UREA NITROGEN 14 MG/DL (7-18); CALCIUM LEVEL 8.5 MG/DL (8.8-10.2); CARBON DIOXIDE LEVEL 32 MEQ/L (21-32); CHLORIDE LEVEL 98 MEQ/L (98-107); CREATININE FOR GFR 0.73 MG/DL (0.70-1.30); GLOMERULAR FILTRATION RATE > 60.0 (>49); GLUCOSE, FASTING 167 MG/DL (80-110); POTASSIUM SERUM 3.6 MEQ/L (3.5-5.1); SODIUM LEVEL 136 MEQ/L (136-145); TOTAL PROTEIN 6.7 GM/DL (6.4-8.2)
[2017-05-29] MEDS: PIPERACILLIN/TAZOBACTAM SOD 3.375 GM in APPROPRIATE DILUENT 1 EA IV SCH ×4 (05:44→23:39)
[2017-05-29] MEDS: HEPARIN SOD (PORCINE) 5000 UNITS/ML VIAL SC SCH ×3 (05:44→21:34)
[2017-05-29] MEDS: KETOROLAC 30 MG/ML VIAL (J1885) IV SCH ×4 (05:44→23:39)
--- NOTE | 2017-05-29 07:13 | REPUSA ---
CLINICAL HISTORY: Metastatic pulmonary nodules on chest evaluation. TECHNIQUE: Multiple axial, sagittal and coronal CT images were obtained through the abdomen and pelvi s after administration of oral and intravenous contrast material. COMMENTS: Small right pleural effusion. Moderate left pleural effusion. Passive atelectatic airspace disease in the left lower lobe. Interstitial thickening and nodularity in the lungs. Pulmonary congestion, passive atelectasis versus lymphangitis carcinomatosis. 3.7x2.6 cm ill-defined hypodense lesion of the pancreatic body/junction between pancreatic body and t ail. Peripancreatic fat stranding and nodularity. Enlarged peripancreatic, periceliac and adjacent retroperitoneal lymphadenopathy. The largest lymph n ode measures 1.5 cm. Enlarged nodular left adrenal gland. Uncomplicated clonic diverticulosis. Moderate prostatomegaly. Prostatic calcifications. Mildly thickened bladder. The liver is of uniform attenuation without mass or defect. There is no intra or extrahepatic biliary ductal dilatation. The spleen is normal. The gallbladder is within normal limits. Both kidneys demonstrate prompt and equal nephrograms. The kidneys are normal in size, shape and conf iguration. There is no evidence of renal or ureteral mass. No renal or ureteral calculi are identifie d. There is no hydroureter or hydronephrosis. No evidence for appendicitis. There is no bowel wall thickening. No evidence for small or large eve l obstruction. There is no evidence of abdominal ascites. There is no evidence of intrinsic or extrinsic bladder mass. There is no pelvic ascites or lymphadeno ester. Images of the lung bases show no evidence of pleural or parenchymal mass. The bony structures are free of lytic or blastic lesions. Multilevel degenerative changes are seen in volving the thoracolumbar spine. Scattered calcifications are seen involving the aorta and major bran ches compatible with atherosclerosis. IMPRESSION: Small right pleural effusion. Moderate left pleural effusion. Passive atelectatic airspace disease in the left lower lobe. Interstitial thickening and nodularity in the lungs. Pulmonary congestion, passive atelectasis versus lymphangitis carcinomatosis. 3.7x2.6 cm ill-defined hypodense lesion of the pancreatic body/junction between pancreatic body and t ail. Peripancreatic fat stranding and nodularity. Probably primary pancreatic neoplasm. Enlarged peripancreatic, periceliac and adjacent retroperitoneal lymphadenopathy. The largest lymph n ode measures 1.5 cm. Enlarged nodular left adrenal gland. Uncomplicated clonic diverticulosis. Moderate prostatomegaly. Prostatic calcifications. Mildly thickened bladder. Thank you for your kind referral of this patient.
[2017-05-29] MEDS ORDERED: ISOVUE-370 76% 100ML VIAL (Q9967) As Ordered ONE (07:30)
--- NOTE | 2017-05-29 07:52 | IPNPDOC ---
Text Note Date of Service The patient was seen on 05/29/17. NOTE Subjective: Patient seen and examined at bedside. No new medical complaints. Complains of some mild discomfort at chest tube site. States his breathing is feeling better. Objective: General: NAD, lying comfortably in bed HEENT: NC/AT, EOMI Lungs: diminished breath sounds left, chest tube in place left anterolateral chest, draining serosanguineous fluid Heart: +S1S2, RRR Abd: soft, NT, obese, +BS Ext: no edema Assessment/Plan: 67 yo male of shortness of breath, found to have large, possibly loculated pleural effusion with multiple pulmonary nodules consistent with metastatic disease s/p chest tube placement. #SOB - 2/2 Large left pleural effusion s/p chest tube placement - still draining well - pathology pending - fluid appears to be exudative - weaned off oxygen - CTS c/s appreciated #pulmonary nodules - concern for metastatic disease - champagne scan pending - o/p colonoscopy - last colonoscopy was 10 years ago - WNL as per patient - family hx of cancer - mother bladder CA/smoker dx in her 80s; father gastric cancer? diagnosed in his 70s #PNA - continue with empiric antimicrobial therapy - cultures pending; MRSA screen pending #DVT prophylaxis - heparin SC #HTN - continue metoprolol #dyslipidemia - continue statin therapy #DM - ISS, modified diet #Anxiety/depression - Continue Zoloft as per home regimen Dispo: continue with CT drainage, follow up CTS, path results pending, o/p colonoscopy VS,Fishbone, I+O VS, Fishbone, I+O Laboratory Tests 05/29/17 04:36 Red Blood Count 4.70, Mean Corpuscular Volume 85.3, Mean Corpuscular Hemoglobin 28.9, Mean Corpuscular Hemoglobin Concent 33.9, Red Cell Distribution Width 12.1 , Calcium Level 8.5 L, Aspartate Amino Transf (AST/SGOT) 8, Alanine Aminotransferase (ALT/SGPT) 16, Alkaline Phosphatase 62, Total Bilirubin 0.4, Total Protein 6.7, Albumin 2.5 L Vital Signs Date Time Temp Pulse Resp B/P (MAP) Pulse Ox O2 Delivery O2 Flow Rate FiO2 05/29/17 04:00 98.7 101 18 145/82 (103) 94 Room Air 12/3/17 20:00 2.0 MIKEY MITCHELL MD May 29, 2017 07:52
[2017-05-29] MEDS: PANTOPRAZOLE 40MG TAB (PROTONIX) PO SCH (08:24)
[2017-05-29] MEDS: SERTRALINE 100 MG TAB PO SCH (08:25)
[2017-05-29] MEDS: MULTIVITAMINS/MINERALS THERAP 1 TAB PO SCH (08:25)
[2017-05-29] MEDS: MOM 30ML SUSPENSION UDC PO SCH (08:25)
[2017-05-29] MEDS: DOCUSATE SODIUM 100 MG CAP PO SCH ×2 (08:25→21:00)
[2017-05-29] MEDS: METOPROLOL SUCC *XL* 25MG TAB (TopROL *XL*) PO SCH (08:25)
[2017-05-29] MEDS: OCUVITE 1 TAB PO SCH ×2 (08:25→21:33)
[2017-05-29] MEDS: HumaLOG INSULIN (NovoLOG) PER UNIT SC SCH ×4 (08:26→21:00)
--- NOTE | 2017-05-29 08:53 | REP ---
CT of the chest with IV contrast: Comparisons 05/26/2017. There is a left thoracotomy tube as an interval change with the tip in the pleural space posteriorly in the left upper lobe region. The previous large left pleural effusion has almost entirely resolved. Small right pleural effusion. There is diffuse interstitial coarsening throughout the left lung. There are multiple lung nodules bilaterally. These could represent subsegmental infiltrates or numerous true lung nodules. The multiplicity of nodules as compatible with metastatic disease. Mediastinal adenopathy is again identified, unchanged. There is no right hilar adenopathy. Questionable left hilar adenopathy versus artifact from atelectatic lung. Questionable small pericardial effusion versus pericardial thickening. This is unchanged. The left adrenal is diffusely larger than right. This may represent left adrenal metastasis. Impression: Left thoracotomy tube. Significant decrease in size of the left pleural effusion. Mild lung nodular densities, small subsegmental infiltrate versus metastatic disease. Mediastinal adenopathy. Small right pleural effusion. Questionable pericardial effusion versus pericardial thickening. Enlarged left adrenal compatible with metastasis. Signed by Vinnie Zuñiga MD 05/29/2017 08:44 A
--- NOTE | 2017-05-29 09:12 | REP ---
PA and lateral chest: Comparisons are 05/28/[address] of 05/29/2017. There is a left thoracotomy tube, unchanged. There is a small left pleural effusion. Is a small right pleural effusion. These are unchanged. There is diffuse bilateral interstitial coarsening, worse on the left. This is unchanged. By CT there are multiple lung nodules. These are better appreciated by CT. Cardiac size is upper normal. No significant interval change. Signed by Vinnie Zuñiga MD 05/29/2017 09:03 A
--- NOTE | 2017-05-29 10:23 | IPN ---
DATE OF SERVICE: 05/28/2017 Mr. Luna is feeling much better today. He can take a deep breath. He does not have any air hunger or shortness of breath that he had yesterday. His vital signs show a T-max of 98.4 with a heart rate that ranges between 91-127 in a sinus rhythm, respiratory rate of 28-24 without the use of accessory muscles who is 97% saturation on 2 liters nasal cannula and has blood pressures ranging between 130/75 to 149/95. His intake and output over the past 24 hours has been recorded as 2245 in and 3260 out for a negativity of 1015 mL. He put out an initial 3000 mL which was followed then by 2800 mL. In the last 12 hours, he has put out 140 mL. He weighs 136.4 kg today compared to 144.09 kg on admission. PHYSICAL EXAMINATION: His lungs show gurgling in the right lower hemithorax. E to A egophony is gone. I hear rales and rhonchi. Percussion notes are full to the diaphragm. Right lung shows normal vesicular sounds. Cardiac exam is without murmurs, clicks, gallops or rubs. I cannot feel his PMI. S1 and S2 are normal. Abdomen is soft, nontender, bowel sounds are positive. There is no hepatomegaly. No CVA tenderness. Extremities show now 2+ pretibial edema. No calf tenderness. No differential swelling of the upper extremities. Skin is warm, dry and perfused without cyanosis or mottling including that of the nail beds and knees. Neck is supple. There is no jugular venous distention. No subcutaneous emphysema. Trachea is midline. Mouth shows his mucous membranes to be pink and moist. Lips and commissures are without lesions. No thrush. Eyes show his pupils to be equal and reactive. Extraocular motor intact. Sclera anicteric. Neuro shows II through XII intact with gross motor and gross sensation intact. Gait is not tested. Psychiatric shows him to be awake and alert, oriented times three with appropriate mood and affect and conversational. His white count today is 11.2 up from 8.7 yesterday. Hemoglobin and hematocrit are 13.7 and 40.0 essentially unchanged from yesterday with platelet count of 398. There is no differential. Electrolytes show a potassium of 3.3 with a BUN and creatinine of 18 and 0.85. Glucose is 209 with AST and ALT of 8 and 18. Albumin is 2.6. His lactate dehydrogenase is 187 and his fluid lactate dehydrogenase is 1596. The remainder of the pleural fluid shows a glucose of 3 with a pH of 7.36. There are 817 white cells of which 41% are neutrophils and 58% are lymphocytes. His chest x-ray today shows re-expansion of the left lung. There is still opacity obscuring the left costophrenic angle. Chest tube is in good place posteriorly. He looks to have infiltrative glandular consolidative pattern in the left lower lobe posteriorly on the chest x-ray. Chest tube is in good place. IMPRESSION: 1. Left side pneumothorax, hypoglycemic exudative and predominately lymphocytic. 2. History of prior pneumonia. 3. Diabetes. 4. Hypertension. 5. Hypercholesterolemia. PLAN AND DISCUSSION: Tomorrow I will obtain a CT scan of his chest. I will let the chest tube drain some more today. The results of the fluid chemistries are a bit unclear. His glucose is very low and that would lead me to bacterial origin, however, it is predominately lymphocytic and it may very well be malignant. It is exudative just from the shed cells. We will have to wait for pathology and microbiology. The gram stain shows no organisms. I am not going to start him on antibiotics at this point in time. He is hypokalemic and if medical service has not replaced him, I will. Medical service has put him on Rocephin and azithromycin IV, however.
--- NOTE | 2017-05-29 14:58 | IPN ---
DATE: 05/29/2017 Mr. Luna is breathing better. He has however put to much out the chest tube to have it removed. His pain is being well controlled at the chest tube insertion site. His vital signs show a T-max of 98.6 with a heart rate that ranges between 101 and 96, and is sinus rhythm, respiratory rate of 18-20 without the use of accessory muscles who is 91-95% saturated on room air and whose blood pressure is ranging between 154/85 to 129/70. His intake and output over the past 24 hours has been recorded as 3835 in and 1300out for a positivity of 2500 mL. He has put out 550 mL out the chest tube. There is no air leak although the nurses have seen an intermittent one throughout the morning. Weight today is 135.8 kg compared to 136.4 kg yesterday. PHYSICAL EXAMINATION: He has rales and rhonchi particularly throughout inspiration on the left side. Percussion note is full to the diaphragm. Right side shows normal vesicular sounds. Percussion note is full to the diaphragm on the right side. Cardiac exam is without murmurs, clicks, gallops or rubs. I cannot feel his PMI. S1 and S2 are normal. Abdomen is soft, nontender, bowel sounds are positive. There is no hepatomegaly. No CVA tenderness that I can feel through his obesity. Extremities show trace pretibial edema. No calf tenderness. No differential swelling of the upper extremities. Skin is warm, dry and perfused without cyanosis or mottling including that of the nail beds and knees. Neck is supple. There is no jugular venous distention. No subcutaneous emphysema. Trachea is midline. Mouth shows his mucous membranes to be pink and moist. Lips and commissures are without lesions. No thrush. Eyes show his pupils to be equal and reactive. Extraocular motor intact. Sclera nonicteric. Neuro shows II through XII intact with gross motor and gross sensation intact. Gait is not tested. Psychiatric shows him to be awake and alert, oriented times three with appropriate mood and affect and conversational. His white count today is down to 9.8 from 11.2 yesterday. Hemoglobin and hematocrit were 13.6 and 40.1, unchanged from yesterday with platelet count of 383. His chemistries show normal electrolytes with an improvement in his hypokalemia. BUN and creatinine are 14 and 0.73 with a potassium of 3.6. Calcium is 8.5 with a corresponding albumin of 2.5. I discussed his pleural chemistries and cell counts yesterday. They are basically exudative, hypoglycemic and lymphocytic. It is a mixed picture and it is equivocal whether this is infective or whether it is malignant. Pathology is pending. Microbiology showed no organisms and there was no growth anaerobically. Neither is there growth aerobically. I did obtain a CT scan on him today. CT scan shows lobular septal thickening throughout the left lung. I cannot frankly tell if he has multiple masses in the right lung or whether these are secondary to the septal thickening. There is a suspicion of a mass in the left lower lobe in the takeoff of the mainstem bronchus where it is narrowed. There are also other nodules and/or infiltrates on the right side. He still has a small pleural effusion on the right side. I do not see a pericardial effusion. He does have mediastinal lymphadenopathy particularly in the right paratracheal region at the level of the azygous vein. There is also subcarinal lymphadenopathy. IMPRESSION: 1. Left side pleural effusion, hypoglycemic exudative and predominately lymphocytic. 2. History of prior pneumonia. 3. Diabetes. 4. Hypertension. 5. Hypercholesterolemia. PLAN AND DISCUSSION: I called pathology and the cell block nor is the cytology out today. We will have to wait until tomorrow. Even if we do not get a positive cytology, it does not mean that this is infective. My tentative plan is to remove the chest tube when the drainage goes below 200 and discharge him and follow him as an outpatient. He may come to bronchoscopy. Dr. Perez and I have already gone over his films today. Meanwhile, he is on antibiotics including Rocephin and azithromycin.
[2017-05-29] MEDS: AZITHROMYCIN INJ 500 MG, VIAL MATE ADAPTER 1 EACH in D5W 250 ML IV SCH (21:30)
[2017-05-29] MEDS: SIMVASTATIN 20 MG TAB PO SCH (21:33)
[2017-05-30 04:23] VITALS: BP 127/80
[2017-05-30] MEDS: SLF 3 ML SYR IV SCH ×3 (05:13→21:58)
[2017-05-30] MEDS: KETOROLAC 30 MG/ML VIAL (J1885) IV SCH ×4 (05:13→23:05)
[2017-05-30] MEDS: PIPERACILLIN/TAZOBACTAM SOD 3.375 GM in APPROPRIATE DILUENT 1 EA IV SCH ×2 (05:13→11:00)
[2017-05-30] MEDS: HEPARIN SOD (PORCINE) 5000 UNITS/ML VIAL SC SCH ×3 (05:13→21:01)
[2017-05-30] MEDS ORDERED: SLF 3 ML SYR IV PRN (05:15)
[2017-05-30 05:30] LABS: MEAN CORPUSCULAR HEMOGLOBIN 28.9 pg (27.0-33.0); MEAN CORPUSCULAR HGB CONC 34.2 g/dl (32.0-36.5); MEAN CORPUSCULAR VOLUME 84.6 fl (80.0-96.0); PLATELET COUNT, AUTOMATED 344 10^3/uL (150-450); RED CELL DISTRIBUTION WIDTH 12.1 % (11.5-14.5); WHITE BLOOD COUNT 9.3 10^3/uL (4.0-10.0)
[2017-05-30 05:50] LABS: ALBUMIN 2.4 GM/DL (3.2-5.2); ALBUMIN/GLOBULIN RATIO 0.56 (1.00-1.93); ALKALINE PHOSPHATASE 58 U/L (45-117); ALT/SGPT 15 U/L (12-78); ANION GAP 7 MEQ/L (8-16); AST/SGOT 12 U/L (7-37); BILIRUBIN,TOTAL 0.3 MG/DL (0.2-1.0); BLOOD UREA NITROGEN 9 MG/DL (7-18); CALCIUM LEVEL 8.5 MG/DL (8.8-10.2); CARBON DIOXIDE LEVEL 31 MEQ/L (21-32); CHLORIDE LEVEL 99 MEQ/L (98-107); CREATININE FOR GFR 0.71 MG/DL (0.70-1.30); GLOMERULAR FILTRATION RATE > 60.0 (>49); GLUCOSE, FASTING 163 MG/DL (80-110); POTASSIUM SERUM 3.7 MEQ/L (3.5-5.1); SODIUM LEVEL 137 MEQ/L (136-145); TOTAL PROTEIN 6.7 GM/DL (6.4-8.2)
--- NOTE | 2017-05-30 07:52 | REP ---
PA and lateral chest: A comparison is 05/29/2017. Diffuse bilateral interstitial coarsening is again identified, significantly worse on the left, this is unchanged. The left thoracotomy tube is unchanged. The bilateral pleural effusions are unchanged. Cardiac size is upper normal, unchanged. By CT there are multiple lung nodules. These are better appreciated on the recent CT. Impression: No interval change. Signed by Vinnie Zuñiga MD 05/30/2017 07:43 A
[2017-05-30 08:00] VITALS: BP 135/105
[2017-05-30] MEDS: OCUVITE 1 TAB PO SCH ×2 (08:29→21:02)
[2017-05-30] MEDS: MOM 30ML SUSPENSION UDC PO SCH (08:29)
[2017-05-30] MEDS: MULTIVITAMINS/MINERALS THERAP 1 TAB PO SCH (08:30)
[2017-05-30] MEDS: PANTOPRAZOLE 40MG TAB (PROTONIX) PO SCH (08:30)
[2017-05-30] MEDS: DOCUSATE SODIUM 100 MG CAP PO SCH ×2 (08:30→21:00)
[2017-05-30] MEDS: SERTRALINE 100 MG TAB PO SCH (08:30)
[2017-05-30] MEDS: METOPROLOL SUCC *XL* 25MG TAB (TopROL *XL*) PO SCH (08:33)
[2017-05-30] MEDS: HumaLOG INSULIN (NovoLOG) PER UNIT SC SCH ×4 (08:34→21:00)
[2017-05-30 11:45] VITALS: BP 152/88
[2017-05-30] MEDS: FUROSEMIDE 40 MG/4 ML VIAL (J1940) IV SCH ×2 (11:59→17:41)
[2017-05-30] MEDS: POTASSIUM CHLORIDE 10 MEQ SR TABLET PO SCH ×2 (11:59→21:01)
--- NOTE | 2017-05-30 12:04 | IPN ---
DATE: 05/30/2017 Mr. Luna is feeling well today. He has been up and walking around. Feels frustrated with the chest tube as it limits his mobility somewhat. No pain. Temperature 97.3, pulse 104, respiratory rate 16, blood pressure 135/105, 93% on room air. Intakes and outputs notable for a positive fluid balance of 1885. Chest tube output yesterday was 635. He is awake, appropriately interactive, pleasantly conversant. He is quite tall. No acute distress. Mucous membranes moist. Neck supple. Breathing symmetrical. Coarse airway sounds more notable on the right than left. No respiratory distress. Speaking in complete sentences. No accessory muscle use. Heart is distant, normal S1, S2. Abdomen soft, doughy, nontender. No significant lower extremity edema. White cell count 9.3. hemoglobin 13.3 and platelets of 344. Albumin 9. Creatinine 0.7. Pathology is still pending. My assessment is as follows: This is a 67-year-old with shortness of breath found to have large, possibly loculated pleural effusion with multiple pulmonary nodules consistent with metastatic disease status post chest tube placement. Plan is as follows: 1. Symptomatic pleural effusion. I discussed the case with Dr. Espitia the cytology. It appears to be malignant effusion. Will consult oncology today. He still has significant drainage from his chest tube. As such, will be diuresed somewhat at this point. Dr. Espitia feels there is no role for antibiotics, which will be discontinued. 2. Patient has pulmonary nodules, which are concerning for metastatic disease. 3. Patient had been treated empirically with antibiotics. This is no longer necessary. 4. Patient has appropriate deep venous thrombosis (DVT) prophylaxis. 5. Patient has hypertension. On beta blockade. 6. Patient has dyslipidemia. On statin. 7. Patient has diabetes. On sliding scale insulin. 8. Patient has anxiety and depression. Is on Zoloft, selective serotonin reuptake inhibitor (SSRI) home dosing.
--- NOTE | 2017-05-30 12:11 | IPN ---
DATE: 05/30/2017 Mr. Jeremy greene is breathing well, although he has put out over 600 mL in the chest tube overnight. I did discuss the case with pathology and went over the slides and he has adenocarcinoma, although an unknown primary at this point in time. His vital signs show a T-max of 98.6 with a heart rate that ranges between 94 and 104 in a sinus rhythm, a respiratory rate that its constant at 18 who is 91-92% saturated on room air and whose blood pressure is ranging between 127/72 to 135/105. His intake and output over the past 24 hours has been recorded as 3295 in and 2110 out for a positivity of 1185 mL. He has taken in 2900 mL in by mouth intake and he has put out 635 mL out the chest tube. There is no air leak. On physical examination, he has diffuse faint rales throughout inspiration on the left side. His right side shows normal vesicular sounds. Percussion notes are full to the diaphragm. Cardiac exam is without murmurs, clicks, gallops or rubs. I cannot feel his PMI. S1 and S2 are normal. Abdomen is soft, nontender, bowel sounds are positive. There is no hepatomegaly. No costovertebral angle (CVA) tenderness. Extremities show no pretibial edema. No calf tenderness. No differential swelling of the upper extremities. Skin is warm, dry and perfused without cyanosis or mottling, including that of the nail beds and knees. Neck is supple. There is no jugular venous distention. No subcutaneous emphysema. Trachea is midline. Mouth shows his mucous membranes to be pink and moist. Lips and commissures are without lesions. There is no thrush. Eyes show his pupils to be equal and reactive. Extraocular motor intact. Sclera nonicteric. Neuro shows II through XII intact with gross motor and gross sensation intact. Gait is not tested. Psychiatric shows him to be awake and alert, oriented times three with appropriate mood and affect and conversational. His white count today is 9.3 with hemoglobin and hematocrit of 13.3 and 38.9 with a platelet count of 344. Chemistries today show normal electrolytes with a BUN and creatinine of 9.0 and 0.71, glucose of 163, with a corresponding albumin of 2.4. AST and ALT are normal. Magnesium has not been checked today. I discussed his pleural fluid two days ago. His chest x-ray today shows infiltrative pattern throughout the entire lung on the left side with some mild infiltrates in the right lower lobe additionally. The right costophrenic angle is blunted. Chest tube is in a good place. The posterior costophrenic angle is also blunted. As noted above, his preliminary pathology and cytology has come back adenocarcinoma. Pathology shows me there is enough tissue on one of the cell blocks to do markers. His abdominal CT scan was read on 05/27/2017 as having an ill defined hypodense lesion of the pancreatic body. I agree with it that it is quite ill defined. He does have an adrenal lesion which we knew about. There looks also to be a predominant mass in the left lower lobe. We will wait further characterization of pleural fluid to determine the origin of the carcinoma. IMPRESSIONS: 1. Malignant pleural effusion, at this point unknown primary. 2. History of prior treated pneumonia. 3. Diabetes. 4. Hypertension. 5. Hypercholesterolemia. PLAN AND DISCUSSION: I will discontinue the antibiotics today. I will start him on Lasix and potassium to see if we can get the pleural fluid to decrease. Short of that, I will probably have to undertake a talc pleurodesis. He has very good functional status. Pancreatic cancer would certainly explain the lesions on both sides of his lung on yesterday's chest CT. It does look as if there lymphangitic spread in the left upper lobe. We will again wait for further characterization by pathology of the pleural fluid.
[2017-05-30 16:37] VITALS: BP 148/82
[2017-05-30 20:00] VITALS: BP 126/72
[2017-05-30] MEDS: SIMVASTATIN 20 MG TAB PO SCH (21:02)
[2017-05-31] VITALS (7 sets, daily range): BP systolic 130–153; BP diastolic 72–81
[2017-05-31] MEDS: HEPARIN SOD (PORCINE) 5000 UNITS/ML VIAL SC SCH ×3 (05:35→21:03)
[2017-05-31] MEDS: KETOROLAC 30 MG/ML VIAL (J1885) IV SCH ×4 (05:36→22:20)
[2017-05-31] MEDS: SLF 3 ML SYR IV SCH ×3 (05:38→22:20)
[2017-05-31 06:01] LABS: MEAN CORPUSCULAR HEMOGLOBIN 29.1 pg (27.0-33.0); MEAN CORPUSCULAR HGB CONC 34.2 g/dl (32.0-36.5); MEAN CORPUSCULAR VOLUME 85.2 fl (80.0-96.0); PLATELET COUNT, AUTOMATED 364 10^3/uL (150-450); RED CELL DISTRIBUTION WIDTH 12.2 % (11.5-14.5); WHITE BLOOD COUNT 10.1 10^3/uL (4.0-10.0)
[2017-05-31 06:15] LABS: ALBUMIN 2.4 GM/DL (3.2-5.2); ALBUMIN/GLOBULIN RATIO 0.56 (1.00-1.93); ALKALINE PHOSPHATASE 57 U/L (45-117); ALT/SGPT 16 U/L (12-78); ANION GAP 4 MEQ/L (8-16); AST/SGOT 9 U/L (7-37); BILIRUBIN,TOTAL 0.3 MG/DL (0.2-1.0); BLOOD UREA NITROGEN 13 MG/DL (7-18); CALCIUM LEVEL 8.7 MG/DL (8.8-10.2); CARBON DIOXIDE LEVEL 33 MEQ/L (21-32); CHLORIDE LEVEL 100 MEQ/L (98-107); CREATININE FOR GFR 0.65 MG/DL (0.70-1.30); GLOMERULAR FILTRATION RATE > 60.0 (>49); GLUCOSE, FASTING 155 MG/DL (80-110); POTASSIUM SERUM 3.8 MEQ/L (3.5-5.1); SODIUM LEVEL 137 MEQ/L (136-145); TOTAL PROTEIN 6.7 GM/DL (6.4-8.2)
--- NOTE | 2017-05-31 08:11 | REP ---
PA and lateral chest: Comparison is 05/30/2017. Bilateral interstitial coarsening and bilateral pleural effusions are unchanged. The left thoracotomy tube is unchanged. Cardiac size is upper normal, unchanged. The patient's known multiple lung nodules are better appreciated by CT. Impression: No interval change. Signed by Vinnie Zuñiga MD 05/31/2017 08:03 A
[2017-05-31] MEDS: PANTOPRAZOLE 40MG TAB (PROTONIX) PO SCH (09:00)
[2017-05-31] MEDS: OCUVITE 1 TAB PO SCH ×2 (09:00→21:02)
[2017-05-31] MEDS: MOM 30ML SUSPENSION UDC PO SCH (09:00)
[2017-05-31] MEDS: DOCUSATE SODIUM 100 MG CAP PO SCH ×2 (09:01→21:02)
[2017-05-31] MEDS: METOPROLOL SUCC *XL* 25MG TAB (TopROL *XL*) PO SCH (09:01)
[2017-05-31] MEDS: MULTIVITAMINS/MINERALS THERAP 1 TAB PO SCH (09:01)
[2017-05-31] MEDS: FUROSEMIDE 40 MG/4 ML VIAL (J1940) IV SCH ×2 (09:02→18:02)
[2017-05-31] MEDS: POTASSIUM CHLORIDE 10 MEQ SR TABLET PO SCH ×2 (09:02→21:02)
[2017-05-31] MEDS: SERTRALINE 100 MG TAB PO SCH (09:09)
[2017-05-31] MEDS: HumaLOG INSULIN (NovoLOG) PER UNIT SC SCH ×4 (09:11→20:27)
--- NOTE | 2017-05-31 14:56 | IPN ---
DATE: 05/31/2017 Mr. Luna is feeling well today. He has no complaints of pain, chest pain, or shortness of breath. He still has a lot of output from his chest tube. His is at the bedside. Temperature is 96.9, pulse 96, respiratory rate 18, blood pressure 135/81, 94% on room air. Intake and output notable for a negative fluid balance of -1385 with chest drainage in the last 24 hours leading up to midnight is 585. He is awake, appropriately interactive, pleasantly conversant. Breathing is symmetrical. Coarse airway sounds on the left. I-to-E ratio is 1:3. No wheezes. Heart is distant sounding. Normal S1 and S2. Abdomen is soft, doughy, nontender. White cell count 10.1, hemoglobin 13.4, BUN 13, creatinine 0.6. Cell block is consistent with metastatic adenocarcinoma. Cytology possible adenocarcinoma. My assessment is as follows: This is a 67-year-old with shortness of breath found to have large, possibly loculated pleural effusion. Multiple pulmonary nodules consistent with metastatic disease status post chest tube placement. My plan is as follows: 1. Presumed malignant effusion. Patient is being followed by Dr. Espitia. We have discussed this case in person today. Plan for possible talc pleurodesis. Antibiotics have been discontinued. 2. Patient has pulmonary nodules and perhaps pancreatic mass which is concerning for malignancy. Discussed this case by phone with Dr. Han who will see the patient in consultation today. 3. Patient has been treated empirically with antibiotics and no longer necessary. 4. Patient has appropriate deep vein thrombosis (DVT) prophylaxis. 5. Patient has hypertension on beta blockade. 6. Patient has dyslipidemia on statin. 7. Patient has diabetes on sliding scale insulin. 8. Patient has anxiety and depression on Zoloft. 9. The patient's is at bedside and had questions answered with her 's diagnosis and plan for treatment.
--- NOTE | 2017-05-31 17:07 | IPN ---
DATE: 05/31/2017 Mr. Luna is again breathing better. I did get back interim pathology. It looks as though the process is emanating from below the diaphragm. I had a long talk with him regarding that and Dr. Han will see him from oncology. He is still putting quite a bit out of the chest tube and we therefore are going to start planning a talc pleurodesis. His vital signs show a T-max of 99.4 with a heart rate that ranges between 95 and 102 in a sinus rhythm, respiratory rate of 18 to 20 without the use of accessory muscles who is 94% saturated on room air and whose blood pressure is ranging between 153 over 79 to 135/81. His intake and output over the past 24 hours has been recorded as 2250 in and 3635 out for a negativity of 1300 mL. He has put 585 mL out of the chest tube. He has taken in 2220 mL in by mouth intake. His weight today is 136 kg compared to 137.2 kg yesterday. On physical examination his left lung shows squeaks, rhonchi, rales consistent with retained fluid and compression atelectasis. Right lung shows normal vesicular sounds. Percussion note is full to the diaphragm. Cardiac exam is without murmurs, clicks, gallops or rubs. I cannot feel his point of maximal impulse (PMI). S1 and S2 are normal. Abdomen is soft and nontender. Bowel sounds are positive. There is no hepatomegaly. No costovertebral angle (CVA) tenderness. Extremities show no pretibial edema. No calf tenderness. No differential swelling of the upper extremities. Skin is warm, dry and perfused without cyanosis or mottling including that of the nail beds and the knees. Neck is supple. There is no jugular venous distention. No subcutaneous emphysema. Trachea is midline. Mouth shows his mucous membranes to be pink and moist. Lips and commissures without lesions. No thrush. Eyes show his pupils to be equal, reactive. Extraocular muscles intact. Sclera anicteric. Neuro shows II through XII intact. Gross motor and gross sensation intact. Gait is not tested. Psychiatric shows him to be awake, alert and oriented times three with appropriate mood, affect and conversational. His white count today is 10.1 with a hemoglobin and hematocrit of 13.4 and 39.2 respectively with platelet count of 364. There is no differential. The electrolytes are essentially normal with a marginally high total CO2 of 33. BUN and creatinine are 13 and 0.65. Calcium is 8.7 with an albumin of 2.4. AST and ALT are normal. His chest x-ray shows multiple infiltrates in the left lobe. There is also an infiltrate in the left lung, both upper and lower. There is a small infiltrate in the right lower lobe. Costophrenic angles are blunted on the left. There may be residual fluid collection in the mid chest. IMPRESSION: 1. Malignant pleural effusion, probably emanating from below the diaphragm. 2. History of prior treated pneumonia. 3. Diabetes. 4. Hypertension. 5. Hypercholesterolemia. PLAN AND DISCUSSION: We discussed Mr. Luna at cancer conference today. The radiologist points out the pancreatic mass in the tail of the pancreas. He also has some abdominal lymphadenopathy. Liver, however, is clear. He has multiple lesions throughout the lung. Pathology has indicated this looks as though it is emanating from below the diaphragm and with a positive pancreatic mass it probably is coming from the pancreas. It does not look like a primary lung cancer. Because he continues to put out a lot of fluid I will plan for a talc pleurodesis on Monday. I have explained to the patient the risks and benefits and he is willing to proceed. Dr. Han of oncology will see him later today.
[2017-05-31] MEDS: SIMVASTATIN 20 MG TAB PO SCH (21:02)
[2017-06-01] VITALS (7 sets, daily range): BP systolic 106–154; BP diastolic 70–92
[2017-06-01] MEDS: HEPARIN SOD (PORCINE) 5000 UNITS/ML VIAL SC SCH ×3 (05:05→21:01)
[2017-06-01] MEDS: KETOROLAC 30 MG/ML VIAL (J1885) IV SCH (05:05)
[2017-06-01] MEDS: SLF 3 ML SYR IV SCH ×3 (05:06→21:02)
[2017-06-01 05:55] LABS: MEAN CORPUSCULAR HEMOGLOBIN 28.9 pg (27.0-33.0); MEAN CORPUSCULAR HGB CONC 33.9 g/dl (32.0-36.5); MEAN CORPUSCULAR VOLUME 85.3 fl (80.0-96.0); PLATELET COUNT, AUTOMATED 337 10^3/uL (150-450); RED CELL DISTRIBUTION WIDTH 12.2 % (11.5-14.5); WHITE BLOOD COUNT 10.6 10^3/uL (4.0-10.0)
[2017-06-01 06:20] LABS: ALBUMIN 2.6 GM/DL (3.2-5.2); ALBUMIN/GLOBULIN RATIO 0.62 (1.00-1.93); ALKALINE PHOSPHATASE 59 U/L (45-117); ALT/SGPT 19 U/L (12-78); ANION GAP 9 MEQ/L (8-16); AST/SGOT 14 U/L (7-37); BILIRUBIN,TOTAL 0.4 MG/DL (0.2-1.0); BLOOD UREA NITROGEN 15 MG/DL (7-18); CALCIUM LEVEL 8.9 MG/DL (8.8-10.2); CARBON DIOXIDE LEVEL 28 MEQ/L (21-32); CHLORIDE LEVEL 102 MEQ/L (98-107); CREATININE FOR GFR 0.72 MG/DL (0.70-1.30); GLOMERULAR FILTRATION RATE > 60.0 (>49); GLUCOSE, FASTING 158 MG/DL (80-110); POTASSIUM SERUM 4.2 MEQ/L (3.5-5.1); SODIUM LEVEL 139 MEQ/L (136-145); TOTAL PROTEIN 6.8 GM/DL (6.4-8.2)
[2017-06-01] MEDS: OCUVITE 1 TAB PO SCH ×2 (08:15→20:57)
[2017-06-01] MEDS: METOPROLOL SUCC *XL* 25MG TAB (TopROL *XL*) PO SCH (08:15)
[2017-06-01] MEDS: HumaLOG INSULIN (NovoLOG) PER UNIT SC SCH ×4 (08:15→21:00)
[2017-06-01] MEDS: MOM 30ML SUSPENSION UDC PO SCH (08:15)
[2017-06-01] MEDS: DOCUSATE SODIUM 100 MG CAP PO SCH ×2 (08:15→20:57)
[2017-06-01] MEDS: PANTOPRAZOLE 40MG TAB (PROTONIX) PO SCH (08:15)
[2017-06-01] MEDS: POTASSIUM CHLORIDE 10 MEQ SR TABLET PO SCH ×2 (08:16→20:57)
[2017-06-01] MEDS: FUROSEMIDE 40 MG/4 ML VIAL (J1940) IV SCH ×2 (08:16→17:42)
[2017-06-01] MEDS: SERTRALINE 100 MG TAB PO SCH (08:16)
--- NOTE | 2017-06-01 08:44 | REP ---
PA and lateral chest: Comparison is 08/01/2016. The left thoracotomy tube is unchanged. Bilateral interstitial coarsening and small bilateral pleural effusions are unchanged. Cardiac size is normal, unchanged. The patient has multiple lung nodules identified on CT. These are not readily apparent on PA and lateral plain films. Impression: No interval change. Signed by Vinnie Zuñiga MD 06/01/2017 08:36 A
--- NOTE | 2017-06-01 11:47 | CR ---
NEW PATIENT CONSULT DATE OF SERVICE: 05/31/2017 REASON FOR REFERRAL: Malignant pleural effusion with pleural fluid cytology showing findings consistent with adenocarcinoma. Cell block of pleural fluid CK7 positive. CT scan of the abdomen showing a pancreatic mass, overall picture consistent with a pancreatic primary. Additional staining studies pending at this time, to rule out a pancreatic primary versus a lung primary. HISTORY OF PRESENT ILLNESS: Mr. Luna is a 67-year-old man who was treated for pneumonia by his primary care provider, Maxx Dimas. At that time, he had a cough with whitish phlegm. He subsequently had worsening of his shortness of breath and he went to [facility] (ER). He had a CT scan of the chest which showed a left pleural effusion. He had a CT abdomen and pelvis which showed a pancreatic mass and lymphadenpathy. He had a chest tube insertion with pleural fluid cytology and cell block showing adenocarcinoma. Medical Oncology was consulted for this. Mr. Luna reports no fevers. No chills. No chest pains. He has had no nausea. No vomiting. No abdominal pains. He reports that he has lost 20 pounds over the past 6 months, but he has also been watching his diet. He has fair energy levels. PAST MEDICAL HISTORY: Hypertension. Dyslipidemia. Diabetes mellitus. Anxiety/depression. No known drug allergies. CURRENT MEDICATIONS IN THE HOSPITAL: - furosemide - ketorolac - hydrocodone/acetaminophen - bisacodyl - metoprolol - multivitamins - sertraline - pantoprazole - docusate sodium - magnesium hydroxide - insulin - heparin - simvastatin PERSONAL/SOCIAL HISTORY: He is . He is a former smoker having quit smoking 20 years ago. He smoked for 20 years one pack per day. On physical exam, he was seated comfortably on the chair, not in distress. He had a chest tube on the left side. He had pinkish conjunctivae, anicteric sclerae. No oral mucosal lesions. No palpable cervical nodes. Lungs, fair air entry with decreased breath sounds on the left side. S1, S2 regular. No murmur. No gallop. Abdomen was soft, nontender, no guarding. Extremities - no calf swelling, no calf tenderness, and no pedal edema. IMPRESSION/PLAN: Mr. Luna is a 67-year-old man who is currently admitted for shortness of breath. Further workup showed a malignant pleural effusion, specifically, an adenocarcinoma. Imaging studies showed a pancreatic mass, an enlarged nodular left adrenal gland, as well as mild lung nodular densities and mediastinal adenopathy. I discussed with Mr. Luna that the imaging studies and the pathology are consistent with metastatic pancreatic cancer. We await additional staining studies from pathology at this time to confirm or rule out pancreatic cancer. I discussed that he, unfortunately, has an incurable condition. We normally give chemotherapy for patients with metastatic adenocarcinoma, the goal of which would be palliative. I understand that he is to undergo a talc pleurodesis shortly. We will arrange for him to start chemotherapy once he is discharged from the hospital. Thank you very much for this referral. cc: MD Demetrius Peter MD
--- NOTE | 2017-06-01 13:56 | IPN ---
DATE: 06/01/2017 Mr. Luna is feeling okay today. He has no complaints of pain, chest pain. No shortness of breath. Tolerating his diet. Temperature 97.6, pulse 93, respiratory rate 20, blood 150/70, 94% in room air. Input and output notable for positive fluid balance of 845. One bowel movement yesterday. He is awake, appropriately interactive. Pleasantly conversant. Breathing is symmetrical. Coarse upper airway sounds throughout. No wheezes, rales or rhonchi. I/E ratio is 1:3. He speaks in complete sentences. No accessory muscle use. Heart sounds normal. S1, S2. Abdomen soft, doughy nontender. White cell count 12.6, hemoglobin 13, platelets 337. BUN 15, creatinine 0.72. Chest x-ray shows no interval change. ASSESSMENT: This is a 67-year-old with shortness of breath found to have a large possibly loculated pleural effusion and has worked out to be most likely malignant pleural effusion, possibly from a pancreatic source. PLAN: 1. Malignant effusion: The patient is for planned talc pleurodesis tomorrow with Dr. Espitia. 2. The patient has suspected pancreatic cancer planned for outpatient chemotherapy. I discussed this case by phone with Dr. Han yesterday. Plan for chemotherapy upon his discharge. Dr. Espitia will place a Mediport tomorrow. 3. The patient is empirically treated with antibiotics, which are no longer deemed necessary. 4. The patient has appropriate deep venous thrombosis prophylaxis. 5. The patient has hypertension beta aiyana. 6. The patient has dyslipidemia and statin. 7. The patient has diabetes on a sliding scale insulin. Fingersticks are reasonably well controlled for the current setting. 8. The patient has anxiety and depression on Zoloft. 9. The patient's is at bedside. All questions answered.
--- NOTE | 2017-06-01 16:28 | IPN ---
DATE: 06/01/2017 Mr. Luna is breathing well today. His pain is being well controlled at the chest tube insertion site. He saw Dr. Han of oncology yesterday. The plan is for him to start chemotherapy after I discharge him from the hospital. His vital signs show a maximum temperature (Tmax) of 97.8 with a heart rate that ranges between 97- 93 in a sinus rhythm, respiratory rate of 18-20 without the use of accessory muscles, who is 94-95% saturated on room air and whose blood pressure is ranging between 152/72-106/70. His intake and output over the past 24 hours has been recorded as 2160 in and 1315 for a positivity of 845 mL. He has put out 490 mL from the chest tube and there is no air leak. Weight today is 137 kg compared to 136 kg yesterday. On physical examination, his left hemithorax still shows gurgles, squeaks and rhonchi throughout the entire hemithorax. It is consistent with continued fluid. Percussion notes are full to the diaphragm. Right side shows normal vesicular sounds. Cardiac exam is without murmurs, clicks, gallops or rubs. I cannot feel his point of maximal impulse (PMI). S1 and S2 are normal. Abdomen is soft, nontender. Bowel sounds are positive. There is no hepatomegaly, no costovertebral angle (CVA) tenderness. Extremities show no pretibial edema, no calf tenderness. No differential swelling of the upper extremities. Skin is warm, dry and perfused without cyanosis or mottling including that of the nail beds and the knees. Neck is supple. There is no jugular venous distention, no subcutaneous emphysema. Trachea is midline. Mouth shows his mucous membranes to be pink and moist. Lips and commissures without lesions. No thrush. Eyes show his pupils to be equal, reactive. Extraocular muscles intact. Sclera anicteric. Neuro shows II-XII intact, along with gross motor and gross sensation intact. Gait is intact. Psychiatric shows him to be awake, alert, oriented times three with appropriate mood, affect and conversational. His white count today is 10.6 with a hemoglobin and hematocrit of 13.0 and 38.4, essentially unchanged from yesterday, with a platelet count of 337. Chemistries show normal electrolytes with BUN and creatinine of 15 and 0.72, a glucose of 158 with a albumin of 2.6 and calcium of 8.9. AST and ALT are normal. C19-9 antigen is still pending. PSA is within normal limits at 1.59. Final pathology is back with the specimen staining positive for CK7, but TTF-1, CDX2, CK20 are all negative. This looks to be pointing below the diaphragm and with the pancreatic mass that is probably the primary. IMPRESSION: 1. Malignant pleural effusion, probably pancreatic in origin, although not actually proven to be. 2. History of prior treated pneumonia. 3. Diabetes. 4. Hypertension. 5. Hypercholesterolemia. 6. Continuing high output pleural effusion. PLAN AND DISCUSSION: The pleural effusion is not chylous and it has been biopsy proven malignant. I will therefore undertake a talc pleurodesis on him tomorrow. He understands the risks and benefits and is willing to proceed.
[2017-06-01] MEDS: SIMVASTATIN 20 MG TAB PO SCH (21:00)
[2017-06-01] MEDS: D5W/0.9% SODIUM CHLORIDE 1,000 ML IV SCH (23:47)
[2017-06-02] MEDS: HEPARIN SOD (PORCINE) 5000 UNITS/ML VIAL SC SCH ×3 (04:26→23:42)
[2017-06-02] MEDS: SLF 3 ML SYR IV SCH ×3 (04:27→22:00)
[2017-06-02 04:50] VITALS: BP 141/84
[2017-06-02 05:28] LABS: MEAN CORPUSCULAR HEMOGLOBIN 28.8 pg (27.0-33.0); MEAN CORPUSCULAR HGB CONC 33.5 g/dl (32.0-36.5); PLATELET COUNT, AUTOMATED 372 10^3/uL (150-450); RED CELL DISTRIBUTION WIDTH 12.3 % (11.5-14.5); WHITE BLOOD COUNT 12.1 10^3/uL (4.0-10.0)
[2017-06-02 05:50] LABS: ALBUMIN 2.7 GM/DL (3.2-5.2); ALBUMIN/GLOBULIN RATIO 0.63 (1.00-1.93); ALKALINE PHOSPHATASE 57 U/L (45-117); ALT/SGPT 22 U/L (12-78); ANION GAP 10 MEQ/L (8-16); AST/SGOT 10 U/L (7-37); BILIRUBIN,TOTAL 0.3 MG/DL (0.2-1.0); BLOOD UREA NITROGEN 14 MG/DL (7-18); CALCIUM LEVEL 8.8 MG/DL (8.8-10.2); CARBON DIOXIDE LEVEL 26 MEQ/L (21-32); CHLORIDE LEVEL 102 MEQ/L (98-107); CREATININE FOR GFR 0.74 MG/DL (0.70-1.30); GLOMERULAR FILTRATION RATE > 60.0 (>49); GLUCOSE, FASTING 181 MG/DL (80-110); POTASSIUM SERUM 4.4 MEQ/L (3.5-5.1); SODIUM LEVEL 138 MEQ/L (136-145)
[2017-06-02] MEDS ORDERED: MUPIROCIN 2% OINT 22 GM TUBE TOP ONE (06:00)
[2017-06-02] MEDS: PANTOPRAZOLE 40MG TAB (PROTONIX) PO SCH (07:35)
[2017-06-02] MEDS: METOPROLOL SUCC *XL* 25MG TAB (TopROL *XL*) PO SCH (07:36)
[2017-06-02] MEDS: SERTRALINE 100 MG TAB PO SCH (07:36)
[2017-06-02 08:00] VITALS: BP 154/90
[2017-06-02] MEDS: MOM 30ML SUSPENSION UDC PO SCH (09:00)
[2017-06-02] MEDS: DOCUSATE SODIUM 100 MG CAP PO SCH ×2 (09:00→23:43)
[2017-06-02] MEDS: OCUVITE 1 TAB PO SCH ×2 (09:00→23:43)
[2017-06-02] MEDS: POTASSIUM CHLORIDE 10 MEQ SR TABLET PO SCH ×2 (09:00→23:43)
[2017-06-02] MEDS: HumaLOG INSULIN (NovoLOG) PER UNIT SC SCH ×4 (09:13→21:00)
[2017-06-02] MEDS: FUROSEMIDE 40 MG/4 ML VIAL (J1940) IV SCH ×2 (09:13→17:23)
--- NOTE | 2017-06-02 09:42 | REP ---
CHEST PA AND LATERAL: 06/02/2017. Comparison: 06/01/2017, 05/31/2017, 05/30/2017, CT chest 05/29/2017. Clinical History: Pleural effusion with left chest tube, diffuse nodules and interstitial edema versus lymphangitic tumor. Findings: Left chest tube from anterolateral to posterior left upper lung zone at the level of the aortic arch. Volume loss in the left hemithorax. I do not see a definite apical pneumothorax. There is a tiny linear lucent line along the lateral mid left chest suggesting tiny air collection there but small effusions bilaterally. The diffuse interstitial changes and nodular appearance in that left chest is unchanged. Fullness in the perihilar region may reflect underlying nodule or mass. All of this is stable. Right lung shows underlying fibrosis. The heart and mediastinal contours are unchanged. Impression: 1. Stable chest with extensive nodular interstitial changes in the left lung which could be interstitial edema with nodules or lymphangitic spread. Small effusion on the left with no apical pneumothorax visible today. Underlying fibrosis in the right lung. Signed by Eulogio Suarez MD 06/02/2017 06:41 P
[2017-06-02 11:05] LABS: CA 125 79.5 U/ML (<30.2)
[2017-06-02 12:00] VITALS: BP 128/68
[2017-06-02] MEDS: D5W/0.9% SODIUM CHLORIDE 1,000 ML IV SCH (12:58)
[2017-06-02] MEDS: ACETAMINOPHEN TAB 650MG DOSE (2X325MG) PO PRN (12:58)
[2017-06-02 16:00] VITALS: BP 118/58
--- NOTE | 2017-06-02 18:07 | IPN ---
DATE: 06/02/2017 SUBJECTIVE: Mr. Luna is feeling well today. He has no complaints of pain, chest pain, shortness of breath. A little nervous about his procedure today. No fever or chills. OBJECTIVE: VITAL SIGNS: Temperature 98.3, pulse 104, respiratory rate 20, blood pressure 154/90, 94% on room air. INTAKE AND OUTPUT: Notable for negative fluid balance of minus 938. No bowel movements noted. GENERAL: Is awake, appropriately interactive, pleasantly conversant. LUNGS: Breathing is symmetrical, rested. HEART: Distant sounding normal S1, S2. No significant arrhythmia on monitor. ABDOMEN: Soft, doughy, nontender. Chest tube is in place on the left. LABORATORY DATA: White cell count 12.1, hemoglobin 13.2, platelets 372. BUN 14, creatinine 0.74. ASSESSMENT: This is a 67-year-old with shortness of breath, found to have a large, loculated pleural effusion which is a malignant pleural effusion, possibly from pancreatic primary. PLAN: 1. Malignant pleural effusion: The patient is planned for talc pleurodesis today with Dr. Espitia. I did discuss this case with him by phone. 2. The patient has suspected pancreatic cancer. Plan for outpatient chemotherapy with plans for following up with Dr. Han. Chemotherapy upon discharge. 3. The patient was empirically treated with antibiotics which are no longer deemed necessary. 4. The patient has appropriate deep venous thrombosis (DVT) prophylaxis. 5. The patient has hypertension, reasonably well controlled with the current setting. 6. The patient has dyslipidemia, on statin drug. 7. The patient has diabetes, on sliding scale. Currently nothing by mouth with glucose containing intravenous (IV) fluid. 8. The patient has anxiety and depression, on Zoloft. 9. The patient's is at bedside. Questions are answered.
[2017-06-02] MEDS ORDERED: MIDAZOLAM INJ 2 MG/2 ML VIAL (J2250) As Ordered ONE ×2 (18:36→19:02)
[2017-06-02] MEDS ORDERED: fentaNYL 100 MCG/2 ML INJECTION (J3010) As Ordered ONE (18:36)
[2017-06-02] MEDS ORDERED: fentaNYL 100 MCG/2 ML INJECTION (J3010) IV ONE (18:40)
[2017-06-02] MEDS ORDERED: MIDAZOLAM INJ 2 MG/2 ML VIAL (J2250) IV ONE (18:40)
[2017-06-02] MEDS ORDERED: PROPOFOL 200 MG/20 ML VIAL As Ordered ONE (19:02)
[2017-06-02] MEDS ORDERED: LIDOCAINE 2% INJ 100 MG/5 ML SDV (FOR ANES.) As Ordered ONE (19:02)
[2017-06-02] MEDS ORDERED: fentaNYL 250 MCG/5 ML INJECTION (J3010) As Ordered ONE (19:02)
[2017-06-02] MEDS ORDERED: ROCURONIUM BROMIDE 50 MG/5 ML VIAL As Ordered ONE ×2 (19:02→21:11)
[2017-06-02] MEDS ORDERED: NALOXONE INJ 0.4 MG/1 ML VIAL (J2310) IV PRN (19:15)
[2017-06-02] MEDS ORDERED: diphenhydrAMINE INJ 50MG/ML VIAL (J1200) IV PRN (19:15)
[2017-06-02] MEDS ORDERED: EPIDURAL/PCA KEYS XX PRN (19:15)
[2017-06-02] MEDS ORDERED: WALLBOXKEY XX PRN (19:15)
[2017-06-02] MEDS ORDERED: ONDANSETRON 4MG/2ML VIAL (J2405) IV PRN ×2 (19:15→23:00)
[2017-06-02] MEDS ORDERED: METOCLOPRAMIDE INJ 10MG/2ML VIAL (J2765) IV PRN (19:15)
[2017-06-02] MEDS ORDERED: STERILE TALC POWDER 3GM VIAL As Ordered ONE (19:24)
[2017-06-02] MEDS ORDERED: BUPIVACAINE HCL 0.5% 30 ML VIAL As Ordered ONE (19:25)
[2017-06-02] MEDS ORDERED: ceFAZolin 1GM INJ (J0690 PER 500MG) As Ordered ONE ×2 (19:25→20:39)
[2017-06-02] MEDS ORDERED: BUPIVACAINE LIPOSOME/PF 1.3% 20 ML VIAL (13.3MG/ML)(EXPAREL) As Ordered ONE (19:25)
[2017-06-02] MEDS ORDERED: MUPIROCIN 2% OINT 22 GM TUBE As Ordered ONE (19:25)
[2017-06-02] MEDS ORDERED: TALCAIR POWDER BLOWER (CAN ONLY BE USED WITH 3GM TALC VIAL) XX ONE (19:25)
[2017-06-02] MEDS ORDERED: CETACAINE SPRAY 5GM As Ordered ONE (20:11)
[2017-06-02] MEDS ORDERED: PHENYLephrine HCL 500 MCG/5 ML (100MCG/ML) SYRINGE (J2370) As Ordered ONE (20:34)
[2017-06-02] MEDS ORDERED: BUPIVACAINE HCL 0.25% 30 ML VIAL As Ordered ONE (20:56)
[2017-06-02] MEDS ORDERED: ONDANSETRON 4MG/2ML VIAL (J2405) As Ordered ONE (21:09)
[2017-06-02] MEDS ORDERED: NEOSTIGMINE 10 MG/10 ML VIAL (J2710) As Ordered ONE (21:13)
[2017-06-02] MEDS ORDERED: GLYCOPYRROLATE INJ 0.2 MG/ML 2 ML VIAL As Ordered ONE (21:13)
[2017-06-02] MEDS ORDERED: FENTANYL 2MCG/ML BUPIVACAINE 0.0625% NACL 250ML IV BAG As Ordered ONE (21:54)
[2017-06-02 22:33] LABS: ABG BASE EXCESS -0.9 (-2.0-2.0); ABG HCO3 26.9 MEQ/L (22.0-26.0); ABG PARTIAL PRESSURE CO2 57.3 mmHg (35.0-45.0); ABG PARTIAL PRESSURE O2 76.7 mmHg (75.0-100.0); ABG STANDARD HCO3 23.6 MEQ/L (22.0-26.0); ABG TOTAL CO2 28.6 MEQ/L (23.0-31.0); ABG pH (ARTERIAL) 7.289 UNITS (7.350-7.450)
[2017-06-02 22:40] LABS: BASO # 0.1 10^3/uL (0.0-0.2); BASO % 0.4 % (0.0-1.0); EOS # 0.3 10^3/uL (0.0-0.50); EOS % 2.1 % (0.0-3.0); LYMPH % 19.4 % (24.0-44.0); MEAN CORPUSCULAR HEMOGLOBIN 28.7 pg (27.0-33.0); MEAN CORPUSCULAR HGB CONC 31.6 g/dl (32.0-36.5); MEAN CORPUSCULAR VOLUME 90.6 fl (80.0-96.0); MONO # 1.3 10^3/uL (0.0-0.8); MONO % 8.1 % (0.0-5.0); NEUTROPHILS # 10.8 10^3/uL (1.8-7.7); PLATELET COUNT, AUTOMATED 435 10^3/uL (150-450); RED CELL DISTRIBUTION WIDTH 12.5 % (11.5-14.5); WHITE BLOOD COUNT 15.6 10^3/uL (4.0-10.0)
[2017-06-02 22:58] LABS: ANION GAP 7 MEQ/L (8-16); BLOOD UREA NITROGEN 14 MG/DL (7-18); CARBON DIOXIDE LEVEL 30 MEQ/L (21-32); CHLORIDE LEVEL 102 MEQ/L (98-107); CREATININE FOR GFR 0.91 MG/DL (0.70-1.30); GLOMERULAR FILTRATION RATE > 60.0 (>49); GLUCOSE, FASTING 164 MG/DL (80-110); POTASSIUM SERUM 4.6 MEQ/L (3.5-5.1); SODIUM LEVEL 139 MEQ/L (136-145)
[2017-06-02] MEDS: FENTANYL/BUPIVACAINE/NACL BAG 250 ML EPIDURAL SCH (23:00)
[2017-06-02] MEDS ORDERED: fentaNYL 100 MCG/2 ML INJECTION (J3010) IV PRN (23:00)
[2017-06-02] MEDS ORDERED: LR 1,000 ML IV SCH (23:00)
[2017-06-02] MEDS: KCL 20MEQ IN D5/NS 1000ML 1,000 ML IV SCH (23:29)
[2017-06-02 23:30] VITALS: BP 110/68
[2017-06-02] MEDS: KETOROLAC 30 MG/ML VIAL (J1885) IV SCH (23:42)
[2017-06-02] MEDS: SIMVASTATIN 20 MG TAB PO SCH (23:43)
[2017-06-02 23:45] VITALS: BP 95/60
[2017-06-03] VITALS (13 sets, daily range): BP systolic 108–134; BP diastolic 57–80
[2017-06-03] MEDS: KETOROLAC 30 MG/ML VIAL (J1885) IV SCH ×4 (04:21→21:07)
[2017-06-03 04:38] LABS: BASO % 0.3 % (0.0-1.0); EOS # 0.1 10^3/uL (0.0-0.50); EOS % 0.9 % (0.0-3.0); IMMATURE GRANULOCYTE % 0.7 % (0-0); LYMPH # 1.6 10^3/uL (1.5-4.5); LYMPH % 10.8 % (24.0-44.0); MEAN CORPUSCULAR HGB CONC 32.2 g/dl (32.0-36.5); MONO # 1.4 10^3/uL (0.0-0.8); MONO % 9.1 % (0.0-5.0); NEUTROPHILS # 11.6 10^3/uL (1.8-7.7); NEUTROPHILS % 78.2 % (36.0-66.0); PLATELET COUNT, AUTOMATED 353 10^3/uL (150-450); RED CELL DISTRIBUTION WIDTH 12.5 % (11.5-14.5); WHITE BLOOD COUNT 14.8 10^3/uL (4.0-10.0)
[2017-06-03 05:02] LABS: ANION GAP 5 MEQ/L (8-16); BLOOD UREA NITROGEN 15 MG/DL (7-18); CALCIUM LEVEL 8.6 MG/DL (8.8-10.2); CARBON DIOXIDE LEVEL 32 MEQ/L (21-32); CHLORIDE LEVEL 103 MEQ/L (98-107); CREATININE FOR GFR 0.86 MG/DL (0.70-1.30); GLOMERULAR FILTRATION RATE > 60.0 (>49); GLUCOSE, FASTING 144 MG/DL (80-110); POTASSIUM SERUM 4.9 MEQ/L (3.5-5.1); SODIUM LEVEL 140 MEQ/L (136-145)
[2017-06-03] MEDS: SLF 3 ML SYR IV SCH ×3 (06:00→21:07)
[2017-06-03] MEDS: HEPARIN SOD (PORCINE) 5000 UNITS/ML VIAL SC SCH ×3 (06:02→21:06)
[2017-06-03 06:18] LABS: ABG BASE EXCESS 1.9 (-2.0-2.0); ABG PARTIAL PRESSURE CO2 49.4 mmHg (35.0-45.0); ABG STANDARD HCO3 26.2 MEQ/L (22.0-26.0); ABG TOTAL CO2 29.5 MEQ/L (23.0-31.0); ABG pH (ARTERIAL) 7.371 UNITS (7.350-7.450)
[2017-06-03] MEDS: FENTANYL/BUPIVACAINE/NACL BAG 250 ML EPIDURAL SCH (07:31)
[2017-06-03] MEDS: POTASSIUM CHLORIDE 10 MEQ SR TABLET PO SCH ×2 (09:00→21:06)
[2017-06-03] MEDS: HumaLOG INSULIN (NovoLOG) PER UNIT SC SCH ×4 (09:39→20:58)
[2017-06-03] MEDS: MOM 30ML SUSPENSION UDC PO SCH (10:22)
[2017-06-03] MEDS: FUROSEMIDE 40 MG/4 ML VIAL (J1940) IV SCH ×2 (10:22→16:48)
[2017-06-03] MEDS: OCUVITE 1 TAB PO SCH ×2 (10:23→21:05)
[2017-06-03] MEDS: PANTOPRAZOLE 40MG TAB (PROTONIX) PO SCH (10:23)
[2017-06-03] MEDS: DOCUSATE SODIUM 100 MG CAP PO SCH ×2 (10:24→21:05)
[2017-06-03] MEDS: METOPROLOL SUCC *XL* 25MG TAB (TopROL *XL*) PO SCH (10:24)
[2017-06-03] MEDS: SERTRALINE 100 MG TAB PO SCH (10:24)
[2017-06-03] MEDS: KCL 20MEQ IN D5/NS 1000ML 1,000 ML IV SCH (11:10)
--- NOTE | 2017-06-03 12:05 | REP ---
REASON: History of pleural effusion. COMPARISON: Multiple, latest 06/02/2017. Extensive bilateral patchy opacities are present and when the technical differences between the examinations are taken into consideration (today's exam portable, the last prior exam PA), there does not appear to be a significant change when compared to the prior exam in relation to the patchy opacities. There is cardiomegaly accentuated by technique. Two left sided chest tubes have been placed and there appears to be less CP angle blunting. Each tube has a different location than the single tube seen on the exam obtained at 8 a.m. 06/02/2017. IMPRESSION: Two left sided chest tubes as described above. Extensive bilateral patchy opacities. Signed by Juve Vazquez DO 06/03/2017 08:54 A
--- NOTE | 2017-06-03 12:06 | REP ---
REASON FOR EXAM: History of pleural effusion. Comparison obtained 06/02/2017 at 10:35 p.m. The left sided thoracotomy tubes are unchanged. Patchy opacities are again seen throughout both lung archer, left greater than left, and when the technical differences between the examinations are taken into consideration, there does not appear to be a significant change. No new abnormal opacities have developed. The cardiomediastinal silhouette is stable. The osseous structures are stable. IMPRESSION: No significant change compared to the prior exam with findings as described above. Signed by Juve Vazquez DO 06/03/2017 10:20 A
--- NOTE | 2017-06-03 12:06 | RO ---
DATE OF PROCEDURE: 06/02/2017 PREPROCEDURE DIAGNOSIS: Malignant pleural effusion, recurrent persistent pleural effusion. POSTPROCEDURE DIAGNOSIS: Malignant pleural effusion, recurrent persistent pleural effusion. PROCEDURE: Talc pleurodesis, pleural biopsies and five level rib block along with bronchoscopy. (Bronchoscopy was done by Dr. Perez and she will dictate that under separate cover). SURGEON: Dr. Demetrius Espitia SUPERVISOR MAPPING: ANESTHESIA: FINDINGS: On bronchoscopy, showed no endobronchial lesions. The takeoff of the left lower bronchus showed extrinsic compression. DESCRIPTION OF PROCEDURE: Under satisfactory general anesthesia and single lumen tube endotracheal intubation, the bronchoscope was placed into the tracheobronchial tree. Dr. Perez then manipulated the bronchoscope. The above findings were noted. The patient was then turned into the right lateral decubitus position and sterilely prepped and draped in the usual fashion. After identifying the patient and the correct side, a stab wound incision was made in the approximate fifth intercostal space. A port was placed with direct visualization under pressure insufflation. I entered the chest without difficulty. The lung was away from the chest wall. A second port was then placed. Multiple pleural biopsies were taken and sent for permanent sections and pathology. There was diffuse studding throughout the entire pleural surface and both visceral and parietal surfaces. Biopsies were taken from the parietal surface. Talc was then insufflated uniformly throughout the pleural cavity, including the anterior and posterior costophrenic angles. Two chest tubes were placed, one posteriorly in the vertebral gutter and also superiorly along with one in the costophrenic angle posteriorly. These were secured to the skin. A separate port incision was made in order to visualize the chest tube placement. The prior port incisions were used for the chest tubes themselves. A five level rib block consisting of Exparel was then instilled. The remaining port incision was closed with running #4-0 Monopril suture. The patient tolerated the procedure well and left the operating room in satisfactory condition for the recovery room.
--- NOTE | 2017-06-03 13:08 | IPN ---
DATE: 06/03/2017 SUBJECTIVE: Mr. Luna is not complaining of pain, chest pain, shortness of breath. He does have some cough this morning. He is looking forward to breakfast which he has not yet ordered. Temperature 98.7, pulse 93, respiratory rate 18, blood pressure 112/57, 95% on 3 liters. INTAKE AND OUTPUT: Notable for a negative fluid balance of -1540. Weight is 134.3 kg. He is awake, appropriately interactive, pleasantly conversant. Breathing is symmetrical, diminished. Heart is distant sounding. Normal S1, S2. Abdomen soft, doughy, nontender. He has a chest tube in place on the left. White cell count 14.8, hemoglobin 13.1, platelets 353. Creatinine 0.86. Chest x-ray is pending from this morning. ASSESSMENT: 67-year-old with shortness of breath found to have a large loculated pleural effusion which is a malignant pleural effusion, possibly from pancreatic primary. PLAN: 1. Patient has malignant pleural effusion. He went for a talc pleurodesis yesterday with Dr. Espitia. He has a chest tube in place on the left. He is being followed by Dr. Espitia. 2. Patient has suspected pancreatic cancer. Plan for outpatient chemotherapy with plans to followup with Dr. Han. 3. Patient was empirically treated with antibiotics at the beginning of stay, those are currently discontinued. 4. Patient has appropriate deep venous thrombosis (DVT) prophylaxis. 5. Patient has hypertension which is reasonably well controlled. 6. Patient has dyslipidemia, on a statin. 7. Patient has diabetes, on sliding scale. Finger sticks are reasonably well controlled with the current setting. 8. Patient has history of anxiety and depression, on Zoloft. 9. Patient's is at bedside, questions are answered. 10. Patient was seen by the nurse navigator from oncology practice, we did discuss this by phone yesterday. 11. Patient has some cough and would benefit from use of incentive spirometry. I did discuss this with the patient and his at bedside.
--- NOTE | 2017-06-03 14:40 | IPN ---
DATE OF SERVICE: 06/03/2017 This is now postoperative day #1 for Mr. Luna. He is sitting up comfortably and not complaining of any pain. He is breathing well. His vital signs show a maximum temperature (Tmax) of 98.8 with a heart rate that ranges between 94 and 104 in a sinus rhythm, respiratory rate of 18-20 without the use of accessory muscles, who is 96% to 92% saturated on 3 liters nasal cannula, and whose blood pressure is ranging between 108/59 to 124/63. His intake and output over the past 24 hours has been recorded as 1815 in and 3355 out for a negativity of 1540 mL. Since surgery, his chest tube has put out 175 mL. There is no air leak. On physical examination, he has coarse rales, rhonchi, and some gurgles in the left hemithorax. Right hemithorax shows some scattered rales and rhonchi, the most of which clear with coughing. Cardiac examination is without murmurs, clicks, gallops, or rubs. I cannot feel his point of maximal impulse (PMI). S1 and S2 are normal. Abdomen is soft and nontender. Bowel sounds are positive. There is no hepatomegaly, costovertebral angle (CVA) tenderness. He is tympanitic and distended. Extremities show no pretibial edema, no calf tenderness. No differential swelling of the upper extremities. Skin is warm, dry, and perfused without cyanosis or mottling, including that of the nail beds and the knees. Neck is supple. There is no jugular venous distention, no subcutaneous emphysema. Trachea is midline. Mouth shows his mucous membranes to be pink and moist. Lips and commissures without lesions. There is no thrush. Eyes show his pupils to be equal and reactive. Extraocular muscles are intact. Sclerae anicteric. Neurologic shows II-XII intact, along with gross motor and gross sensation intact. Gait is not tested. Psychiatric shows him to be awake, alert, oriented times three, with appropriate mood and affect and conversational. His white count today is 14.8 with a hemoglobin and hematocrit of 13.1 and 40.7 and a platelet count of 353 stable. The differential shows 78% neutrophils, 10% lymphocytes, 9% monocytes. There are no immature forms, no toxic granulations. His electrolytes are normal today with a BUN and creatinine of 15 and 0.86, a glucose of 144, and a calcium of 8.6. Blood gases this morning show a pH of 7.37, PCO2 of 49, and a pO2 of 90 on the above oxygen with a base excess of 1.9. His chest x-ray today shows the lung fully expanded to the chest wall. There is increased vascularity in the left lung. There is a small infiltrate in the right lower lobe with a sharp costophrenic angle in the right lower lobe. The lateral film is underexposed. It is not very informative. He has a gastric bubble but not a gastric dilatation. His CK19-9 drawn on 05/31/2017 and reported on 06/01/2017 is 18,786. Extraordinary high level for a tumor marker, and my suspicion is that this really does point to pancreatic origin. CA125 was 79.5, slightly elevated. The prostate-specific antigen (PSA) was negative. IMPRESSION: 1. Malignant pleural effusion, most likely pancreatic in origin. 2. History of prior treated pneumonia. 3. Diabetes. 4. Hypertension. 5. Hypercholesterolemia. 6. High output pleural effusion, hopefully addressed with the talc pleurodesis. 7. Postoperative day #1, status post talc pleurodesis. PLAN AND DISCUSSION: I will transfer him to progressive care unit (PCU) today. I will continue him on suction. I will also continue him on twice a day Lasix. Hopefully, will be able to get the tubes out in the next 4-5 days and then get him over to oncology to begin chemotherapy. With the extraordinary high level of the CK19-9, this is absolutely no doubt pancreatic in origin.
[2017-06-03] MEDS: SIMVASTATIN 20 MG TAB PO SCH (21:06)
[2017-06-04 04:00] VITALS: BP 117/68
[2017-06-04] MEDS: FENTANYL/BUPIVACAINE/NACL BAG 250 ML EPIDURAL SCH (05:05)
[2017-06-04] MEDS: HEPARIN SOD (PORCINE) 5000 UNITS/ML VIAL SC SCH ×3 (05:15→21:39)
[2017-06-04] MEDS: SLF 3 ML SYR IV SCH ×3 (05:15→21:39)
[2017-06-04] MEDS: KETOROLAC 30 MG/ML VIAL (J1885) IV SCH ×4 (05:15→22:55)
[2017-06-04 05:58] LABS: BASO # 0.1 10^3/uL (0.0-0.2); BASO % 0.5 % (0.0-1.0); EOS # 0.4 10^3/uL (0.0-0.50); EOS % 3.4 % (0.0-3.0); IMMATURE GRANULOCYTE % 0.9 % (0-0); LYMPH # 1.4 10^3/uL (1.5-4.5); LYMPH % 11.5 % (24.0-44.0); MEAN CORPUSCULAR HEMOGLOBIN 29.2 pg (27.0-33.0); MEAN CORPUSCULAR HGB CONC 32.8 g/dl (32.0-36.5); MEAN CORPUSCULAR VOLUME 89.2 fl (80.0-96.0); MONO # 1.1 10^3/uL (0.0-0.8); MONO % 9.1 % (0.0-5.0); NEUTROPHILS # 9.1 10^3/uL (1.8-7.7); NEUTROPHILS % 74.6 % (36.0-66.0); PLATELET COUNT, AUTOMATED 306 10^3/uL (150-450); RED CELL DISTRIBUTION WIDTH 12.3 % (11.5-14.5); WHITE BLOOD COUNT 12.2 10^3/uL (4.0-10.0)
[2017-06-04 06:12] LABS: ANION GAP 7 MEQ/L (8-16); BLOOD UREA NITROGEN 21 MG/DL (7-18); CALCIUM LEVEL 8.8 MG/DL (8.8-10.2); CARBON DIOXIDE LEVEL 30 MEQ/L (21-32); CHLORIDE LEVEL 98 MEQ/L (98-107); CREATININE FOR GFR 0.77 MG/DL (0.70-1.30); GLOMERULAR FILTRATION RATE > 60.0 (>49); GLUCOSE, FASTING 171 MG/DL (80-110); POTASSIUM SERUM 4.4 MEQ/L (3.5-5.1); SODIUM LEVEL 135 MEQ/L (136-145)
[2017-06-04 08:00] VITALS: BP 113/71
[2017-06-04] MEDS: OCUVITE 1 TAB PO SCH ×2 (08:03→21:38)
[2017-06-04] MEDS: SERTRALINE 100 MG TAB PO SCH (08:03)
[2017-06-04] MEDS: PANTOPRAZOLE 40MG TAB (PROTONIX) PO SCH (08:03)
[2017-06-04] MEDS: DOCUSATE SODIUM 100 MG CAP PO SCH ×2 (08:03→21:37)
[2017-06-04] MEDS: MOM 30ML SUSPENSION UDC PO SCH (08:03)
[2017-06-04] MEDS: POTASSIUM CHLORIDE 10 MEQ SR TABLET PO SCH ×2 (08:03→21:38)
[2017-06-04] MEDS: HumaLOG INSULIN (NovoLOG) PER UNIT SC SCH ×4 (08:04→21:00)
[2017-06-04] MEDS: METOPROLOL SUCC *XL* 25MG TAB (TopROL *XL*) PO SCH (08:04)
[2017-06-04] MEDS: FUROSEMIDE 40 MG/4 ML VIAL (J1940) IV SCH (08:04)
--- NOTE | 2017-06-04 09:58 | REP ---
REASON FOR TODAY'S EXAM: Followup pleural effusions. Patchy bilateral opacities status quo. Cardiomediastinal silhouette unchanged. Left sided thoracotomy tube stable. No acute patchy parenchymal opacities or pleural effusions have developed since the last exam. IMPRESSION: No change. Signed by Juve Vazquez DO 06/04/2017 10:28 A
[2017-06-04 12:00] VITALS: BP 107/57
--- NOTE | 2017-06-04 12:09 | IPN ---
DATE OF SERVICE: 06/04/2017 This is now the second postoperative day for Mr. Luna. His pain is being well controlled with the epidural. He is coughing and deep breathing and ambulating. His vital signs show a maximum temperature (Tmax) of 99.1 with a heart rate that ranges between 88 and 96 in a sinus rhythm, respiratory rate of 18-20 without the use of accessory muscles, who is 92% saturated on 3 liters nasal cannula, and whose blood pressure is ranging between 110/70 to 117/68. His intake and output over the past 24 hours has been recorded as 3857 in and 1770 out for a positivity of 287 mL. He has taken in 3300 mL in oral intake, and he has put out 440 mL in the chest tube. There is no air leak. He has only put out 1320 mL in urine output. His weight today is 135.8 kg compared to 134.5 kg yesterday. On physical examination, he has some rales and squeaks in the left lung throughout the respiratory cycle. Right lung shows normal vesicular sounds. Percussion note is full to the diaphragm. Cardiac examination is without murmurs, clicks, gallops, or rubs. I cannot feel his point of maximal impulse (PMI). S1 and S2 are normal. Abdomen is soft and nontender. Bowel sounds are positive. There is no hepatomegaly, no costovertebral angle (CVA) tenderness. Extremities show trace pretibial edema, no calf tenderness. No differential swelling of the upper extremities. Skin is warm, dry, and perfused without cyanosis or mottling, including that of the nail beds and the knees. Neck is supple. There is no jugular venous distention, no subcutaneous emphysema. Trachea is midline. Mouth shows his mucous membranes to be pink and moist. Lips and commissures without lesions. There is no thrush. Eyes show his pupils to be equal and reactive. Extraocular muscles are intact. Sclerae anicteric. Neurologic shows II-XII intact, along with gross motor and gross sensation intact. Gait is not tested. Psychiatric shows him to be awake, alert, oriented times three, with appropriate mood and affect and conversational. His white count today is 12.2 with a hemoglobin and hematocrit of 12.4 and 37.8 down from 13.1 and 40.7 yesterday and 14.3 and 45.2 immediately postoperatively. Platelet count is 360 and stable. The differential shows 74% neutrophils, 7% lymphocytes, 9% monocytes. There are no immature forms, no toxic granulations. His chemistries show essentially normal electrolytes with a BUN and creatinine of 21 and 0.77, a glucose of 171, and a calcium of 8.8. His chest x-ray today shows the lung fully expanded to the chest wall. Left costophrenic angle looks to be clearing. There is some subcutaneous emphysema. There is volume loss from his underlying disease. The chest tubes are in good place. Right lung does not show any infiltrates except for a small area in the right lower inferior hemithorax, which has been persistently there. IMPRESSION: 1. Postoperative day #2, status post talc pleurodesis. 2. Widely metastatic probable pancreatic carcinoma. 3. History of prior treated pneumonia. 4. Diabetes. 5. Hypertension. 6. Hypercholesterolemia. 7. High output effusions, hopefully addressed with the talc pleurodesis. PLAN AND DISCUSSION: I will more vigorously diurese him today, as he is positive. I am not going to put him on a fluid restriction but would rather take care of it with diuretics. Yesterday, his CK19-9 was in the 18,000s, which is extraordinarily high. This all points to his tumor being pancreatic in origin.
[2017-06-04 16:00] VITALS: BP 110/76
[2017-06-04] MEDS: FUROSEMIDE 100 MG/10 ML VIAL (J1940) IV SCH (16:54)
[2017-06-04 20:00] VITALS: BP 112/66
[2017-06-04] MEDS: SIMVASTATIN 20 MG TAB PO SCH (21:38)
[2017-06-04 22:53] VITALS: BP 129/63
[2017-06-05] VITALS: BP 125/67
[2017-06-05 04:00] VITALS: BP 147/72
[2017-06-05] MEDS: KETOROLAC 30 MG/ML VIAL (J1885) IV SCH ×4 (04:56→21:19)
[2017-06-05] MEDS: SLF 3 ML SYR IV SCH ×3 (04:56→21:19)
[2017-06-05 05:18] LABS: BASO % 0.4 % (0.0-1.0); EOS # 0.4 10^3/uL (0.0-0.50); EOS % 4.1 % (0.0-3.0); IMMATURE GRANULOCYTE % 0.9 % (0-0); LYMPH # 1.2 10^3/uL (1.5-4.5); LYMPH % 13.5 % (24.0-44.0); MEAN CORPUSCULAR HEMOGLOBIN 29.1 pg (27.0-33.0); MEAN CORPUSCULAR HGB CONC 33.1 g/dl (32.0-36.5); MEAN CORPUSCULAR VOLUME 87.9 fl (80.0-96.0); MONO # 0.9 10^3/uL (0.0-0.8); MONO % 9.5 % (0.0-5.0); NEUTROPHILS # 6.6 10^3/uL (1.8-7.7); NEUTROPHILS % 71.6 % (36.0-66.0); PLATELET COUNT, AUTOMATED 274 10^3/uL (150-450); RED CELL DISTRIBUTION WIDTH 12.3 % (11.5-14.5); WHITE BLOOD COUNT 9.2 10^3/uL (4.0-10.0)
[2017-06-05 05:34] LABS: ANION GAP 7 MEQ/L (8-16); BLOOD UREA NITROGEN 20 MG/DL (7-18); CALCIUM LEVEL 8.6 MG/DL (8.8-10.2); CARBON DIOXIDE LEVEL 33 MEQ/L (21-32); CHLORIDE LEVEL 95 MEQ/L (98-107); CREATININE FOR GFR 0.68 MG/DL (0.70-1.30); GLOMERULAR FILTRATION RATE > 60.0 (>49); GLUCOSE, FASTING 162 MG/DL (80-110); POTASSIUM SERUM 4.1 MEQ/L (3.5-5.1); SODIUM LEVEL 135 MEQ/L (136-145)
[2017-06-05] MEDS: HEPARIN SOD (PORCINE) 5000 UNITS/ML VIAL SC SCH ×3 (05:52→21:19)
[2017-06-05] MEDS: FENTANYL/BUPIVACAINE/NACL BAG 250 ML EPIDURAL SCH (06:04)
[2017-06-05 08:00] VITALS: BP 120/69
[2017-06-05] MEDS: OCUVITE 1 TAB PO SCH ×2 (08:56→21:18)
[2017-06-05] MEDS: PANTOPRAZOLE 40MG TAB (PROTONIX) PO SCH (08:56)
[2017-06-05] MEDS: METOPROLOL SUCC *XL* 25MG TAB (TopROL *XL*) PO SCH (08:56)
[2017-06-05] MEDS: SERTRALINE 100 MG TAB PO SCH (08:56)
[2017-06-05] MEDS: HumaLOG INSULIN (NovoLOG) PER UNIT SC SCH ×4 (08:56→21:00)
[2017-06-05] MEDS: FUROSEMIDE 100 MG/10 ML VIAL (J1940) IV SCH ×2 (08:57→17:04)
[2017-06-05] MEDS: DOCUSATE SODIUM 100 MG CAP PO SCH ×2 (08:57→21:18)
[2017-06-05] MEDS: MOM 30ML SUSPENSION UDC PO SCH (08:57)
--- NOTE | 2017-06-05 10:01 | REP ---
CHEST, TWO VIEWS: Two views of the chest are performed and compared to a prior study of 06/04/2017. Bilateral parenchymal opacities are stable. Peripheral left pleural opacity is also unchanged. There are two left chest tubes. The most superior left chest tube demonstrates its side port just lateral to the mid left ribs. Cardiomediastinal silhouette and the remainder of the study is unchanged. Signed by Vinnie Gagnon MD 06/07/2017 08:53 A
--- NOTE | 2017-06-05 10:30 | IPN ---
DATE: 06/04/2017 Mr. Luna is feeling well today. He has no complaints of pain, chest pain, or shortness of breath. Tolerating a diet. Temperature 97.5, pulse 94, respiratory rate 18, blood pressure 113/71, 95% on 3 liters. Intakes and outputs notable for a positive fluid balance of 2086. Weight 134.5 kg yesterday, 135.8 today. He is awake, sitting up at bedside, in no acute distress. Head is normocephalic. Neck is thick. Breathing is symmetrical, rested. Mucous membranes moist. Heart is distant sounding. Normal S1, S2. There is evidence of tachycardia, which appears to be narrow complex at time on telemetry. Abdomen soft, doughy, nontender. White cell count 12.2, hemoglobin 12.4 and platelets of 306. Sodium 135. Creatinine 0.77. My assessment is as follows: 1. This is a 67-year-old with shortness of breath found to have a large loculated pleural effusion, which is a malignant possibly from pancreatic primary, status post talc pleurodesis. 2. Patient has malignant pleural effusions. He has been seen by Dr. Espitia. Chest tube placed. Talc pleurodesis completed. Plan for outpatient chemotherapy after discharge with Dr. Han. Continue with chest tube today. 3. Patient was treated empirically with antibiotics for suspected pneumonia at the beginning of stay. 4. Patient has appropriate deep venous thrombosis (DVT) prophylaxis. 5. Patient has hypertension, which is reasonably well controlled. 6. Patient has dyslipidemia, on a statin. 7. Patient's is at bedside, questions are answered. 8. Patient has diabetes, on sliding scale, reasonably well controlled with the current setting. 9. Patient has anxiety and depression, on Zoloft. 10. Patient has been followed by nurse navigator during stay.
[2017-06-05 12:00] VITALS: BP 131/65
[2017-06-05] MEDS: POTASSIUM CHLORIDE 10 MEQ SR TABLET PO SCH ×2 (13:49→21:18)
[2017-06-05 16:00] VITALS: BP 113/72
--- NOTE | 2017-06-05 16:03 | IPN ---
DATE: 06/05/2017 This is now the third postoperative day for Mr. Luna. He put out a little bit more than I expected from the chest tube. He has also taken in quite a bit and I am therefore going to place him on a fluid restriction in addition to the Lasix. His vital signs show a maximum temperature (Tmax) of 99.6 with a heart rate that ranges between 91-83 in a sinus rhythm, respiratory rate of 18-20 without the use of accessory muscles, who is 94-96% saturated on 3 liters nasal cannula and whose blood pressure is ranging between 147/72-120/69. His intake and output over the past 24 hours has been recorded as 2960 in and 3595 out for a negativity of 635 mL. He has taken in 2980 mL in oral intake. He put out 720 mL out the chest tube and there is no air leak. His weight today is 137 kg compared to 135.8 kg yesterday. On physical examination, he has crackles, rhonchi along with gurgles and squeaks in his left lung. Percussion note is full to the diaphragm on the right. Cardiac exam is without murmurs, clicks, gallops, or rubs. I cannot feel his point of maximal impulse (PMI). S1 and S2 are normal. Abdomen is soft, nontender. Bowel sounds are positive. There is no hepatomegaly, no costovertebral angle (CVA) tenderness. He is slightly distended and tympanitic. Extremities show no pretibial edema, no calf tenderness. No differential swelling of the upper extremities. Skin is warm, dry and perfused, without cyanosis or mottling including that of the nail beds and the knees. Neck is supple. There is no jugular venous distention, no subcutaneous emphysema. Trachea is midline. Mouth shows his mucous membranes to be pink and moist. Lips and commissures without lesions. There is no thrush. Eyes show his pupils to be equal and reactive. Extraocular muscles are intact. Sclerae anicteric. Neuro shows II-XII intact, along with gross motor and gross sensation intact. Gait is not tested. Psychiatric shows him to be awake and alert, oriented times three with appropriate mood and affect and conversational. His white count today is 9.2 with a hemoglobin and hematocrit of 12.0 and 36.2. Platelet count is 274 and differential shows 71% neutrophils, 13% lymphocytes, 9% monocytes. There are no immature forms, no toxic granulations. His chemistries show essentially normal electrolytes with a BUN of 20 and creatinine of 0.68. Glucose is 162 with a calcium of 8.6. His chest x-ray today shows his lung fully expanded to the chest wall. The left lung shows numerous infiltrates and alveolar markings. IMPRESSION: 1. Postoperative day #3 status post talc pleurodesis. 2. Widely metastatic probable pancreatic carcinoma. 3. History of prior treated pneumonia. 4. Diabetes. 5. Hypertension. 6. Hypercholesterolemia. 7. High output effusions, hopefully addressed with the talc pleurodesis. PLAN AND DISCUSSION: I will institute a 2500 mL fluid restriction. I will add another diuretic.
[2017-06-05] MEDS: metOLazone 5 MG TAB PO SCH (17:04)
[2017-06-05 20:00] VITALS: BP 103/70
[2017-06-05] MEDS: SIMVASTATIN 20 MG TAB PO SCH (21:18)
[2017-06-06] VITALS (7 sets, daily range): BP systolic 108–139; BP diastolic 64–80
[2017-06-06] MEDS: KETOROLAC 30 MG/ML VIAL (J1885) IV SCH ×4 (04:54→21:12)
[2017-06-06] MEDS: SLF 3 ML SYR IV SCH ×3 (04:58→21:12)
[2017-06-06] MEDS: HEPARIN SOD (PORCINE) 5000 UNITS/ML VIAL SC SCH ×3 (05:00→21:12)
[2017-06-06 05:08] LABS: BASO % 0.5 % (0.0-1.0); EOS # 0.3 10^3/uL (0.0-0.50); EOS % 3.7 % (0.0-3.0); LYMPH # 1.2 10^3/uL (1.5-4.5); LYMPH % 13.5 % (24.0-44.0); MEAN CORPUSCULAR HEMOGLOBIN 28.8 pg (27.0-33.0); MEAN CORPUSCULAR HGB CONC 33.1 g/dl (32.0-36.5); MONO # 0.8 10^3/uL (0.0-0.8); NEUTROPHILS # 6.3 10^3/uL (1.8-7.7); NEUTROPHILS % 72.3 % (36.0-66.0); PLATELET COUNT, AUTOMATED 272 10^3/uL (150-450); WHITE BLOOD COUNT 8.7 10^3/uL (4.0-10.0)
[2017-06-06 05:21] LABS: ANION GAP 7 MEQ/L (8-16); BLOOD UREA NITROGEN 17 MG/DL (7-18); CALCIUM LEVEL 8.5 MG/DL (8.8-10.2); CARBON DIOXIDE LEVEL 32 MEQ/L (21-32); CHLORIDE LEVEL 96 MEQ/L (98-107); CREATININE FOR GFR 0.64 MG/DL (0.70-1.30); GLOMERULAR FILTRATION RATE > 60.0 (>49); GLUCOSE, FASTING 143 MG/DL (80-110); POTASSIUM SERUM 3.7 MEQ/L (3.5-5.1); SODIUM LEVEL 135 MEQ/L (136-145)
--- NOTE | 2017-06-06 08:34 | REP ---
PA and lateral chest: Comparison 06/05/2017. The two left thoracotomy tubes are unchanged. There is an epidural catheter, unchanged. There are bilateral infiltrates and infiltrate on the left is diffusely more radiodense than the right. This is unchanged. Cardiac size is normal. The josh, mediastinum, bony thorax are unchanged. There is subcutaneous emphysema along the inferolateral left chest wall, unchanged. Impression: There is no interval change Signed by Vinnie Zuñiga MD 06/06/2017 08:25 A
[2017-06-06] MEDS: HumaLOG INSULIN (NovoLOG) PER UNIT SC SCH ×4 (09:13→21:00)
--- NOTE | 2017-06-06 09:42 | RO ---
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 PROCEDURE: Bronchoscopy examination prior to talc pleurodesis requested by Dr. Espitia. PROCEDURALIST: Dr. Russ Perez assisting Dr. Espitia DESCRIPTION OF PROCEDURE: The patient was already intubated. Dr. Espitia had initiated the bronchoscopy. I took over as I entered the room. Time-out was again performed. Trachea was midline. Jamilah was fairly sharp. Right and left mainstem bronchus was normal. RB 1 through 5 were normal without endobronchial lesions. RB 8 with fishmouth but with instillation of saline it opened without endobronchial lesion. There is banding, pitting in the airway. Left mainstem bronchus was normal. All left airways were swollen. The spur between the upper lobe and lower lobe was swollen. There was splaying of the hilum. LB 1 through 10 did not demonstrate any endobronchial lesions; however, there was extrinsic compression. Bronchoscope was then removed, and the case was handed over to Dr. Espitia for pleurodesis. [facility]
--- NOTE | 2017-06-06 09:43 | ECHO ---
DATE OF STUDY: REFERRING PROVIDER: Wild Andrade MD PATIENT LOCATION: Room 3224 REASON FOR THE ECHOCARDIOGRAM: Shortness of breath. 2D MEASUREMENTS: IVS - 1.3 cm LV - 4.9 cm LVPW - 1.3 cm LA - 3.8 cm Aorta - 3.9 cm IVC - 2.2 cm DOPPLER MEASUREMENTS: Peak velocity across the aortic valve 0.82 m/s Peak velocity across the LVOT 0.72 m/s Mitral E 0.53 Mitral A 0.66 with a ratio of 0.8 Maximum tricuspid valve velocity 2.5 m/s 2D COMMENTS: 1. Normal left ventricular size with mildly increased left ventricular wall thickness. Left ventricular systolic function is normal, estimated at 60-65%. 2. Normal left atrium. Normal right atrium and right ventricle. 3. The atrial septum appeared to be normal without evidence of defect or shunt. 4. Mildly enlarged aortic root at 3.9 cm. 5. Small pericardial effusion noted, no evidence of cardiac tamponade. 6. The aortic valve, mitral valve, and tricuspid valve appear to be normal. The pulmonic valve and proximal pulmonary artery branches were not well visualized. 7. The inferior vena cava was mildly enlarged, central venous pressure mildly elevated. DOPPLER: No significant valvular abnormalities detected, but mild tricuspid regurgitation. The calculated pulmonary artery systolic pressure varied between 30-40 mmHg . A normal relaxation pattern was noted across the mitral valve leaflets. IMPRESSION: 1. Normal global left ventricular systolic function. There are features of left ventricular diastolic dysfunction manifested by abnormal relaxation. 2. Mild tricuspid regurgitation with probably mild pulmonary hypertension. 3. Small pericardial effusion noted, no evidence of cardiac tamponade. 4. There were features that were related to elevated central venous pressure. MTDD
[2017-06-06] MEDS: FUROSEMIDE 100 MG/10 ML VIAL (J1940) IV SCH ×2 (10:16→17:15)
[2017-06-06] MEDS: MOM 30ML SUSPENSION UDC PO SCH (10:17)
[2017-06-06] MEDS: POTASSIUM CHLORIDE 10 MEQ SR TABLET PO SCH ×2 (10:18→21:11)
[2017-06-06] MEDS: metOLazone 5 MG TAB PO SCH (10:18)
[2017-06-06] MEDS: SERTRALINE 100 MG TAB PO SCH (10:18)
[2017-06-06] MEDS: DOCUSATE SODIUM 100 MG CAP PO SCH ×2 (10:19→21:11)
[2017-06-06] MEDS: METOPROLOL SUCC *XL* 25MG TAB (TopROL *XL*) PO SCH (10:19)
[2017-06-06] MEDS: PANTOPRAZOLE 40MG TAB (PROTONIX) PO SCH (10:20)
[2017-06-06] MEDS: OCUVITE 1 TAB PO SCH ×2 (10:43→21:14)
--- NOTE | 2017-06-06 13:09 | IPN ---
DATE OF SERVICE: 06/06/2017 Mr. Luna has had a stable 24 hours. He has developed a macular rash on the back of his left calf. It measures approximately 6 x 3 cm. This is nontender and is not pruritic. This was noticed last night. It is not bothering him. He states that he is a little bit more short of breath of breath today than he was yesterday. His vital signs show a T-max of 98.0 with a heart rate that ranges between 111 and 85 in a sinus rhythm, respiratory rate that is constant at 18, who is 94% saturated on 2 liters nasal cannula who desaturated to 87 on room air. His blood pressure is ranging between 136/79 to 118/64. His intake and output over the past 24 hours has been recorded as 480 in and 3880 out. Nursing staff indicates that the intake was not kept accurately yesterday and that is probably off. He drained 480 mL out of the chest tube yesterday down from 720 the day before. Today he has drained 90 mL in the last past 12 hours. He weighs 130.3 kg today compared to 137 kg yesterday. On physical examination, he has coarse rhonchi throughout, not all of which clears with coughing more on the left than the right. Percussion note is full to the diaphragm. Cardiac exam is without murmurs, clicks, gallops or rubs. I cannot feel his PMI. S1 and S2 are normal. Abdomen is soft, nontender, bowel sounds are positive. There is no hepatomegaly. No CVA tenderness. Extremities show no pretibial edema. No calf tenderness. No differential swelling of the upper extremities. Skin is warm, dry and perfused without cyanosis or mottling including that of the nail beds and knees. Neck is supple. There is no jugular venous distention. No subcutaneous emphysema. Trachea is midline. Mouth shows his mucous membranes to be pink and moist. Lips and commissures are without lesions. No thrush. Eyes show his pupils to be equal and reactive. Extraocular motor intact. Sclera anicteric. Neuro shows II through XII intact with gross motor and gross sensation intact. Gait is not tested. Psychiatric shows him to be awake and alert, oriented times three with appropriate mood and affect and conversational. The above rash on his posterior right leg is described in the introduction. His white count today is 8.7 with hemoglobin and hematocrit of 12.4 and 37.5. Platelet count is 272 and stable and differential shows 73% neutrophils. 13% lymphocytes, 9% monocytes. No immature forms. No toxic granulations. Electrolytes show potassium 3.7, sodium 135 with a BUN and creatinine of 17 and 0.64. Glucose is 143 with a calcium of 8.5. His chest x-ray today shows the lung fully expanded to the chest wall. There is a moderate amount of clearing of the right lung but there is still a significant amount of alveolar infiltrative pattern. This is a much better inspiration today. Chest tubes are in good place. Dr. Han called me yesterday and in anticipation of chemotherapy starting next week, she has asked me to place a port and I will do so tomorrow. IMPRESSION: 1. Postoperative day #4 status post talc pleurodesis. 2. Widely metastatic probable pancreatic carcinoma. 3. History of prior treated pneumonia. 4. Diabetes. 5. Hypertension. 6. Hypercholesterolemia. 7. High output effusion, hopefully just the talc pleurodesis decreasing. PLAN AND DISCUSSION: I will continue his diuresis. He is now on Lasix and Zaroxolyn. I am not sure what to make of this rash. It looks like an atopic dermatitis although I cannot really be sure. He has what looks to be widely metastatic pancreatic carcinoma with a CA19-9 measuring 18,786. For all I know, this could be a cutaneous manifestation of his pancreatic cancer. I will closely follow the rash. I am not going to treat it as of now as it is not pruritic. As noted above, will place a left subclavian [id number] tomorrow.
[2017-06-06] MEDS: FENTANYL/BUPIVACAINE/NACL BAG 250 ML EPIDURAL SCH (14:00)
[2017-06-06] MEDS: SIMVASTATIN 20 MG TAB PO SCH (21:12)
[2017-06-07] VITALS (9 sets, daily range): BP systolic 119–141; BP diastolic 76–95
[2017-06-07] MEDS: KETOROLAC 30 MG/ML VIAL (J1885) IV SCH ×3 (04:08→16:08)
[2017-06-07 05:28] LABS: BASO % 0.3 % (0.0-1.0); EOS # 0.2 10^3/uL (0.0-0.50); EOS % 2.1 % (0.0-3.0); IMMATURE GRANULOCYTE % 0.7 % (0-0); LYMPH # 1.3 10^3/uL (1.5-4.5); LYMPH % 11.5 % (24.0-44.0); MEAN CORPUSCULAR HEMOGLOBIN 28.8 pg (27.0-33.0); MEAN CORPUSCULAR HGB CONC 34.1 g/dl (32.0-36.5); MEAN CORPUSCULAR VOLUME 84.4 fl (80.0-96.0); MONO # 1.1 10^3/uL (0.0-0.8); MONO % 9.2 % (0.0-5.0); NEUTROPHILS # 8.7 10^3/uL (1.8-7.7); NEUTROPHILS % 76.2 % (36.0-66.0); PLATELET COUNT, AUTOMATED 333 10^3/uL (150-450); RED CELL DISTRIBUTION WIDTH 12.2 % (11.5-14.5); WHITE BLOOD COUNT 11.4 10^3/uL (4.0-10.0)
[2017-06-07 05:46] LABS: ANION GAP 9 MEQ/L (8-16); BLOOD UREA NITROGEN 21 MG/DL (7-18); CALCIUM LEVEL 9.1 MG/DL (8.8-10.2); CARBON DIOXIDE LEVEL 35 MEQ/L (21-32); CHLORIDE LEVEL 92 MEQ/L (98-107); CREATININE FOR GFR 0.75 MG/DL (0.70-1.30); GLOMERULAR FILTRATION RATE > 60.0 (>49); GLUCOSE, FASTING 175 MG/DL (80-110); POTASSIUM SERUM 3.5 MEQ/L (3.5-5.1); SODIUM LEVEL 136 MEQ/L (136-145)
[2017-06-07] MEDS: HEPARIN SOD (PORCINE) 5000 UNITS/ML VIAL SC SCH ×3 (05:55→21:47)
[2017-06-07] MEDS: SLF 3 ML SYR IV SCH ×3 (05:55→21:47)
--- NOTE | 2017-06-07 08:06 | REP ---
PA and lateral chest: Comparison is 06/06/2017. The two left thoracotomy tubes are unchanged. The epidural catheter is unchanged. There are coarse interstitial markings bilaterally, diffusely worse on the left. This is unchanged. Cardiac size is normal. The josh, mediastinum, and bony thorax are unchanged. The subcutaneous emphysema along the left lateral chest wall is unchanged. Impression: There is no interval change. Sign of Signed by Vinnie Zuñiga MD 06/07/2017 07:58 A
[2017-06-07] MEDS: HumaLOG INSULIN (NovoLOG) PER UNIT SC SCH ×4 (08:13→21:00)
[2017-06-07] MEDS: FUROSEMIDE 100 MG/10 ML VIAL (J1940) IV SCH ×3 (09:50→22:41)
[2017-06-07] MEDS: POTASSIUM CHLORIDE 10 MEQ SR TABLET PO SCH ×2 (09:52→21:46)
[2017-06-07] MEDS: SERTRALINE 100 MG TAB PO SCH (09:52)
[2017-06-07] MEDS: PANTOPRAZOLE 40MG TAB (PROTONIX) PO SCH (09:52)
[2017-06-07] MEDS: DOCUSATE SODIUM 100 MG CAP PO SCH ×2 (09:52→21:45)
[2017-06-07] MEDS: metOLazone 5 MG TAB PO SCH ×2 (09:52→22:53)
[2017-06-07] MEDS: OCUVITE 1 TAB PO SCH ×2 (09:53→21:46)
[2017-06-07] MEDS: METOPROLOL SUCC *XL* 25MG TAB (TopROL *XL*) PO SCH (09:53)
[2017-06-07] MEDS: MOM 30ML SUSPENSION UDC PO SCH (10:08)
[2017-06-07] MEDS: ACETAMINOPHEN TAB 650MG DOSE (2X325MG) PO PRN (14:56)
--- NOTE | 2017-06-07 15:13 | IPN ---
DATE: 06/07/2017 This is now the fourth postoperative day for Mr. Luna after his talc pleurodesis. He has put out less from the chest tube. He is going to be going to the operating room later on today for an [id number]-Iucw so that he will be ready to start his chemotherapy for his pancreatic cancer next week. His vital signs show a maximum temperature (t-max) of 99.4 with a heart rate that ranges between 94 and 102 in a sinus rhythm, respiratory rate that is constant at 18, who is 91 to 92% saturated now on room air. Blood pressure is running between 108/74 to 134/89. His intake and output over the past 24 hours has been recorded as 750 in and 3530 out for a negativity of 2780 mL. I am not sure if his intake is actually accurate. Nonetheless, he has put out 380 mL from the chest tube and there is no air leak. He weighs 129.7 kg today compared to 130.3 kg yesterday. PHYSICAL EXAMINATION: On physical examination, he has coarse rales and rhonchi on the left side, right side shows some occasional rhonchi, which clear with coughing. The remainder shows normal vesicular sounds on the right side. Percussion note is full to the diaphragm. Cardiac exam is without murmurs, clicks, gallops or rubs. I cannot feel his PMI. S1 and S2 are normal. Abdomen is soft, nontender, bowel sounds are positive. There is no hepatomegaly. No costovertebral angle tenderness. He is tympanitic. Extremities show no pretibial edema. No calf tenderness. No differential swelling of the upper extremities. Skin is warm, dry and perfused without cyanosis or mottling, including that of the nail beds and knees. Neck is supple. There is no jugular venous distention. No subcutaneous emphysema. Trachea is midline. Mouth shows his mucous membranes to be pink and moist. Lips and commissures are without lesions. No thrush. Eyes show his pupils to be equal and reactive. Extraocular motor intact. Sclera anicteric. Neurologic shows II through XII intact with gross motor and gross sensation intact. Gait is not tested. Psychiatric shows him to be awake and alert, oriented times three with appropriate mood and affect and conversational. His white count today is 11.4, slightly up from yesterday's of 8.7. Hemoglobin and hematocrit of 13.5 and 39.6, consistent with his diuresis. Platelet count is 333 and stable and differential shows 72% neutrophils, 7% lymphocytes, 9% monocytes. There are no immature forms. No toxic granulations. Chemistries today show normal electrolytes with a potassium just above the lower limit of normal of 3.5. BUN and creatinine are 9 and 21, respectively with a glucose of 175 and a calcium of 9.1. His chest x-ray today shows the lung fully expanded to the chest wall with some clearing of the alveolar markings and infiltrates. Nonetheless, I think that those actually represent lymphangitic spread of his pancreatic cancer. IMPRESSION: 1. Postoperative day #5 status post talc pleurodesis. 2. Widely metastatic probable pancreatic carcinoma. 3. History of prior treated pneumonia. 4. Diabetes. 5. Hypertension. 6. Hypercholesterolemia. 7. High output effusion, addressed with a talc pleurodesis. PLAN AND DISCUSSION: I will take him for his Nyuhvd-D-Irso today. Hopefully, I will be able to remove the chest tube tomorrow if he drains less than 200. He certainly looks as though he is on the way of doing that. I will continue to diurese him and we will replace the potassium.
--- NOTE | 2017-06-07 16:03 | IPN ---
DATE: 06/06/2017 Diagnosis: Metastatic Pancreatic Cancer Mr. Luna currently has a chest tube. He is also on analgesics for pain. He reports that he is ambulatory, but is limited as to where he can go because the chest tube is still in place. I discussed with Mr. Luna that the pathology and imaging studies support a diagnosis of pancreatic cancer. [place] [address].2 U/mL. 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 I discussed that treatment options for metastatic pancreatic cancer include a four drug combination chemotherapy regimen, specifically Folfirinox chemotherapy, as well as a two drug combination chemotherapy regimen Abraxane/gemcitabine. For second line, particularly for those who have MSI-H pancreatic cancer, pembrolizumab is an option. Mr. Luna is scheduled for a port insertion tomorrow. If he is discharged from the hospital this week, we will arrange for him to start chemotherapy at our office next week. He has agreed to the above plan. I also discussed that if he wanted to obtain a second opinion on his condition, we can arrange for this, but Mr. Luna declined this at this time. ALESSANDROD
[2017-06-07] MEDS: FENTANYL/BUPIVACAINE/NACL BAG 250 ML EPIDURAL SCH (16:18)
[2017-06-07] MEDS ORDERED: PROPOFOL 200 MG/20 ML VIAL As Ordered ONE ×2 (16:41→18:50)
[2017-06-07] MEDS ORDERED: fentaNYL 100 MCG/2 ML INJECTION (J3010) As Ordered ONE (16:42)
[2017-06-07] MEDS ORDERED: MIDAZOLAM INJ 2 MG/2 ML VIAL (J2250) As Ordered ONE ×2 (16:42→18:17)
[2017-06-07] MEDS ORDERED: MUPIROCIN 2% OINT 22 GM TUBE As Ordered ONE (16:48)
[2017-06-07] MEDS ORDERED: ceFAZolin 2 GM/D5W 50 ML IV BAG (J0690 PER 500MG) As Ordered ONE (16:48)
[2017-06-07] MEDS ORDERED: BUPIVACAINE LIPOSOME/PF 1.3% 20 ML VIAL (13.3MG/ML)(EXPAREL) As Ordered ONE (16:50)
[2017-06-07] MEDS ORDERED: HEPARIN SOD (PORCINE) 5000 UNITS/ML VIAL As Ordered ONE (16:50)
[2017-06-07] MEDS ORDERED: LIDOCAINE 1% SDV INJ 30 ML VIAL As Ordered ONE (16:50)
[2017-06-07] MEDS ORDERED: LR 1,000 ML IV SCH (19:30)
[2017-06-07] MEDS ORDERED: fentaNYL 100 MCG/2 ML INJECTION (J3010) IV PRN (19:30)
[2017-06-07] MEDS ORDERED: ONDANSETRON 4MG/2ML VIAL (J2405) IV PRN (19:30)
[2017-06-07] MEDS ORDERED: MUPIROCIN 2% OINT 22 GM TUBE TOP ONE (19:30)
--- NOTE | 2017-06-07 19:48 | REP ---
C-ARM VIEWS CHEST: Two C-Arm views of the chest were performed. There is a left subclavian central venous catheter. The tip is in the superior vena cava. 1 minute 17 seconds fluoroscopy time utilized. Signed by Vinnie Gagnon MD 06/08/2017 09:19 A
--- NOTE | 2017-06-07 19:55 | REP ---
PORTABLE CHEST: AP portable view of the chest is performed. There is placement of a left subclavian central venous catheter with tip in the superior vena cava. There is no pneumothorax. Diffuse interstitial opacities are seen bilaterally with additional left lung alveolar opacities with no change since prior study. There are left chest tubes again noted. The cardiomediastinal silhouette has not definitely changed. Signed by Vinnie Gagnon MD 06/08/2017 09:20 A
[2017-06-07] MEDS: SIMVASTATIN 20 MG TAB PO SCH (21:47)
[2017-06-08] VITALS (7 sets, daily range): BP systolic 122–145; BP diastolic 79–98
[2017-06-08] MEDS: ACETAMINOPHEN TAB 650MG DOSE (2X325MG) PO PRN ×2 (04:52→17:17)
[2017-06-08] MEDS: SLF 3 ML SYR IV SCH ×3 (06:00→20:59)
[2017-06-08 06:07] LABS: BASO # 0.1 10^3/uL (0.0-0.2); BASO % 0.4 % (0.0-1.0); EOS # 0.1 10^3/uL (0.0-0.50); EOS % 0.3 % (0.0-3.0); IMMATURE GRANULOCYTE % 0.8 % (0-0); LYMPH # 1.3 10^3/uL (1.5-4.5); LYMPH % 7.6 % (24.0-44.0); MEAN CORPUSCULAR HGB CONC 34.5 g/dl (32.0-36.5); MONO # 1.3 10^3/uL (0.0-0.8); MONO % 7.5 % (0.0-5.0); NEUTROPHILS # 13.9 10^3/uL (1.8-7.7); NEUTROPHILS % 83.4 % (36.0-66.0); PLATELET COUNT, AUTOMATED 430 10^3/uL (150-450); RED CELL DISTRIBUTION WIDTH 12.3 % (11.5-14.5); WHITE BLOOD COUNT 16.7 10^3/uL (4.0-10.0)
[2017-06-08] MEDS: HEPARIN SOD (PORCINE) 5000 UNITS/ML VIAL SC SCH ×3 (06:37→20:58)
[2017-06-08 06:41] LABS: ANION GAP 11 MEQ/L (8-16); BLOOD UREA NITROGEN 24 MG/DL (7-18); CARBON DIOXIDE LEVEL 35 MEQ/L (21-32); CHLORIDE LEVEL 88 MEQ/L (98-107); CREATININE FOR GFR 0.85 MG/DL (0.70-1.30); GLOMERULAR FILTRATION RATE > 60.0 (>49); GLUCOSE, FASTING 213 MG/DL (80-110); POTASSIUM SERUM 3.5 MEQ/L (3.5-5.1); SODIUM LEVEL 134 MEQ/L (136-145)
[2017-06-08] MEDS: FUROSEMIDE 100 MG/10 ML VIAL (J1940) IV SCH (08:41)
[2017-06-08] MEDS: SERTRALINE 100 MG TAB PO SCH (08:41)
[2017-06-08] MEDS: OCUVITE 1 TAB PO SCH ×2 (08:41→21:08)
[2017-06-08] MEDS: MOM 30ML SUSPENSION UDC PO SCH (08:41)
[2017-06-08] MEDS: metOLazone 5 MG TAB PO SCH (08:42)
[2017-06-08] MEDS: HumaLOG INSULIN (NovoLOG) PER UNIT SC SCH ×4 (08:42→21:08)
[2017-06-08] MEDS: POTASSIUM CHLORIDE 10 MEQ SR TABLET PO SCH ×2 (08:43→20:57)
[2017-06-08] MEDS: PANTOPRAZOLE 40MG TAB (PROTONIX) PO SCH (08:43)
[2017-06-08] MEDS: METOPROLOL SUCC *XL* 25MG TAB (TopROL *XL*) PO SCH (08:44)
[2017-06-08] MEDS: DOCUSATE SODIUM 100 MG CAP PO SCH ×2 (08:44→20:56)
--- NOTE | 2017-06-08 08:50 | RO ---
DATE OF PROCEDURE: 06/07/2017 PREPROCEDURE DIAGNOSIS: Metastatic pancreatic carcinoma in need of chemotherapy and vascular access. POSTPROCEDURE DIAGNOSIS: Metastatic pancreatic carcinoma in need of chemotherapy and vascular access. PROCEDURE: Insertion of left subclavian [id number]. SURGEON: Dr. Demetrius Espitia COMBINE INSPECTOR: ANESTHESIA: FINDINGS: At the end of the procedure, all contours were smooth. The port aspirated and flushed well. DESCRIPTION OF PROCEDURE: Under satisfactory MAC anesthesia, the patient was prepped and draped in the usual sterile fashion. The subclavian fossa was infiltrated with 1% lidocaine and vein was found on the first pass. The wire was placed without difficulty and confirmed with fluoroscopy. A port incision was made approximately 2 cm below the wire insertion site. It was carried down to the subcutaneous tissue and a subcutaneous pocket was created. This was done after infiltration of the site with Exparel. The tract was dilated and a peel-away placed. The catheter was then placed through the peel-away introducer. It was positioned under fluoroscopic control after making a tunnel from the wire site to the port site. The catheter was cut to an appropriate size, collar was placed and the catheter connected to the [id number]-[id number]-Fzho. The Rlypxe-X-Ytxv was aspirated and flushed with heparinized saline. The catheter was then secured to the chest wall with two #2-0 silk sutures. Final pictures were taken to confirm the contour of the catheter and its placement at the junction of the superior vena cava and right atrium. The subcutaneous tissue was closed with running #3-0 Vicryl suture and the skin was closed with running #4-0 Monocryl subcuticular suture. The patient tolerated the procedure well and left the operating room in satisfactory condition for the recovery room.
--- NOTE | 2017-06-08 10:25 | REP ---
Chest x-ray: Two views. History: Pleural effusion. Comparison chest x-ray June 07, 2017. Findings: There are two left pleural drainage catheters in place, one in the base and one posterosuperiorly. These are unchanged. There is some diffuse pleural thickening but no free pleural effusion is visible. Interstitial markings are diffusely and moderately increased bilaterally. This is unchanged. An epidural catheter is seen. An Pkkwio-N-Aomn catheter is noted. EKG monitoring electrodes are visible. No new infiltrate. Signed by Yonatan Diaz MD 06/08/2017 10:57 A
--- NOTE | 2017-06-08 16:27 | IPN ---
DATE: 06/08/2017 It is now postoperative day #5 for Mr. Luna. He underwent a port placement yesterday. The Pleur-evac was emptied, and he put out 270 mL yesterday. In the last 12 hours, he has only put out 60 mL, and I am, therefore, going to pull his chest tubes. He is feeling rather wiped out today. He was complaining of shortness of breath and did not do his usual walk to chest x-ray. His pain is being well controlled. His vital signs show a maximum temperature (T max) of 98.5 with a heart rate that ranges between 63 and 106 and is sinus rhythm, respiratory rate of 18 to 20 without the use of accessory muscles who is 93 to 90% saturated on 3 liters nasal cannula and whose blood pressure is ranging between 145/80 to 122/98. His intake and output the past 24 hours has been recorded as 240 in and 2100 out for a negativity of 1860 mL. Yesterday he put out a total of 250 mL from the chest tube. His lungs show rales and rhonchi in the left hemithorax. Not all of these clear with coughing. Percussion note is full to the diaphragm. Left lung shows normal vesicular sounds. Cardiac exam is without murmurs, clicks, gallops or rubs. I cannot feel his point of maximum impulse (PMI). S1, S2 are normal. Abdomen is soft and nontender. Bowel sounds are positive. There is no hepatomegaly. No costovertebral angle tenderness. Extremities show no pretibial edema. No calf tenderness. No differential swelling of the upper extremities. Skin is warm, dry and perfused without cyanosis or mottling, including that of the nail beds and the knees. Neck is supple. There is no jugular venous distention, no subcutaneous emphysema. Trachea is midline. Mouth shows his mucous membranes to be pink and moist. Lips and commissures without lesions. There is no thrush. Eyes show his pupils to be equal and reactive. Extraocular motions intact. Sclerae anicteric. Neurologic shows II-XII intact along with gross motor and gross sensation intact. Gait is not tested. Psychiatric shows him to be awake and alert, oriented times three with a bit of a depressed mood and affect. His white count is 16.7 with a hemoglobin and hematocrit of 15.0 and 43.5, up from 13.5 and 39.6 yesterday and 12.0 and 36.2 the day before. His platelet count is 430, and his differential shows 83% neutrophils, 7% lymphocytes, 7% monocytes. There are no immature forms. No toxic granulations. His electrolytes are essentially normal with a marginally low sodium of 134. Chloride is 88 with a total CO2 of 35. BUN and creatinine are 24 and 0.85 with a glucose of 213 and a calcium of 10.0. His chest x-ray today shows the lung fully expanded to the chest wall. There is a diffuse haze with infiltrative patterns on the left side consistent with his carcinoma. Port is in good place. There is no pneumothorax. Chest tubes are also in good place. IMPRESSION: 1. Postoperative day #5 status post talc pleurodesis. 2. Widely metastatic probable pancreatic carcinoma. 3. History of prior treated pneumonia. 4. Diabetes. 5. Hypertension. 6. Hypercholesterolemia. 7. High output effusion, addressed with a talc pleurodesis. PLAN AND DISCUSSION: I will discontinue his chest tube today, discontinue his Zavaleta and wean his epidural. I think that he is feeling rather weak secondary to my diuresis, and I will discontinue the IV Lasix and oral Zaroxolyn. I will continue him on oral Lasix. Will anticipate discharge in the morning.
[2017-06-08] MEDS: KCL 20MEQ IN D5/NS 1000ML 1,000 ML IV SCH (16:50)
[2017-06-08] MEDS ORDERED: FUROSEMIDE 40 MG TAB PO SCH (17:00)
[2017-06-08] MEDS: SIMVASTATIN 20 MG TAB PO SCH (20:57)
[2017-06-09 04:00] VITALS: BP 154/102
[2017-06-09 05:50] VITALS: BP 138/88
[2017-06-09] MEDS: KCL 20MEQ IN D5/NS 1000ML 1,000 ML IV SCH (05:52)
[2017-06-09] MEDS: SLF 3 ML SYR IV SCH (05:52)
[2017-06-09] MEDS: HEPARIN SOD (PORCINE) 5000 UNITS/ML VIAL SC SCH (05:55)
[2017-06-09 07:14] LABS: MEAN CORPUSCULAR HEMOGLOBIN 29.1 pg (27.0-33.0); MEAN CORPUSCULAR HGB CONC 34.6 g/dl (32.0-36.5); MEAN CORPUSCULAR VOLUME 83.9 fl (80.0-96.0); PLATELET COUNT, AUTOMATED 374 10^3/uL (150-450); RED CELL DISTRIBUTION WIDTH 12.4 % (11.5-14.5); WHITE BLOOD COUNT 14.5 10^3/uL (4.0-10.0)
[2017-06-09 07:38] LABS: ANION GAP 11 MEQ/L (8-16); BLOOD UREA NITROGEN 23 MG/DL (7-18); CALCIUM LEVEL 9.6 MG/DL (8.8-10.2); CARBON DIOXIDE LEVEL 29 MEQ/L (21-32); CHLORIDE LEVEL 91 MEQ/L (98-107); GLOMERULAR FILTRATION RATE > 60.0 (>49); GLUCOSE, FASTING 233 MG/DL (80-110); POTASSIUM SERUM 3.5 MEQ/L (3.5-5.1); SODIUM LEVEL 131 MEQ/L (136-145)
--- NOTE | 2017-06-09 07:58 | REP ---
PA and lateral chest: Comparisons l2016. The two left thoracotomy tubes have been removed. There is increased density throughout the left lung compatible with diffuse infiltrate, unchanged. There is interstitial coarsening inferiorly in the right lung, unchanged. Right upper lobe is clear. There is a left subclavian central venous catheter with the tip the confluence of the innominate vein and superior vena cava, unchanged. The epidural catheter has been removed. Signed by Vinnie Zuñiga MD 06/09/2017 07:49 A
[2017-06-09 08:00] VITALS: BP 133/93
[2017-06-09] MEDS: PANTOPRAZOLE 40MG TAB (PROTONIX) PO SCH (08:22)
[2017-06-09 08:23] VITALS: BP 138/88
[2017-06-09] MEDS: SERTRALINE 100 MG TAB PO SCH (08:23)
[2017-06-09] MEDS: HumaLOG INSULIN (NovoLOG) PER UNIT SC SCH ×2 (08:23→12:00)
[2017-06-09] MEDS: DOCUSATE SODIUM 100 MG CAP PO SCH (08:23)
[2017-06-09] MEDS: METOPROLOL SUCC *XL* 25MG TAB (TopROL *XL*) PO SCH (08:23)
[2017-06-09] MEDS: MOM 30ML SUSPENSION UDC PO SCH (08:24)
[2017-06-09] MEDS: POTASSIUM CHLORIDE 10 MEQ SR TABLET PO SCH (08:24)
[2017-06-09] MEDS: OCUVITE 1 TAB PO SCH (08:24)
[2017-06-09] MEDS ORDERED: NORCOTAB PO (11:16)
[2017-06-09 11:25] VITALS: O2SAT 87
[2017-06-09 11:27] VITALS: O2SAT 93
--- NOTE | 2017-06-12 11:35 | DSES ---
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 Postoperative day 6 status post talc pleurodesis. Malignant recurrent effusion. Diabetes. Hypertension. Hypercholesterolemia. HOSPITAL COURSE: Patient is a 67-year-old white male whose story started around May 17, 2017 when he developed a cough. He was first treated with antibiotics, but then approximately 48 hours prior to admission, he started becoming very short of breath to such an extent that he had trouble even getting around his house. He had lost 19 pounds of weight. He was found to have a very large left pleural effusion which was drained and found to be malignant. Underlying disease of his lung was also found after drainage and a repeat CT scan. The cells were shown to be adenocarcinoma and his CA 19-9 was above 18,000, all pointing to pancreatic cancer. He was also noted to have a pancreatic mass on the CT scan. His pleural effusion continued to be high output and therefore he was taken to the operating room where he underwent a talc pleurodesis. Multiple studding was found and these were also biopsied and also proved to be adenocarcinoma. He had a fairly benign postoperative course and he is being discharged on the sixth postoperative day after removal of the chest tubes the day before. He is being discharged on his home medications which include: - Ventolin two sprays four times a day as needed shortness of breath - aspirin 81 mg daily - hydrochlorothiazide 25 mg daily - metformin 500 mg twice a day - metoprolol 25 mg daily - multivitamin daily - sertraline 100 mg daily - simvastatin 20 mg at bedtime - He is also being sent home on Forbes 5/325 every 4 hours as needed for pain. He will return to see me in one week in postoperative followup in the office. He will also see Dr. Han of oncology for initiation of chemotherapy. While in the hospital, Dr. Han saw him in consultation.
== END 2017-06-09 15:00 | disposition home or self-care (01) | DRG 181 ==
LOC: M ED 14:10 → M ED INP 19:11 → M PCU 22:45 → M ICU 06-02 22:48 → M PCU 06-03 14:55
PROVIDERS: ADMIT Internal Medicine; ATTEND Thoracic Surgery (Cardiothoracic Vascular Surgery)
PROC: 0W9B00Z Drainage of Left Pleural Cavity with Drainage Device, Open Approach (ICD-10-PCS; principal; 2017-05-27)
PROC: 3E0L3GC Introduction of Other Therapeutic Substance into Pleural Cavity, Percutaneous Approach (ICD-10-PCS; 2017-06-02)
PROC: 0BBP3ZX Excision of Left Pleura, Percutaneous Approach, Diagnostic (ICD-10-PCS; 2017-06-02)
PROC: 0BJ08ZZ Inspection of Tracheobronchial Tree, Via Natural or Artificial Opening Endoscopic (ICD-10-PCS; 2017-06-02)
PROC: 02HV33Z Insertion of Infusion Device into Superior Vena Cava, Percutaneous Approach (ICD-10-PCS; 2017-06-07)
DX: C78.02 Secondary malignant neoplasm of left lung (principal); J93.9 Pneumothorax, unspecified; J91.0 Malignant pleural effusion; C25.2 Malignant neoplasm of tail of pancreas; I10 Essential (primary) hypertension; E87.6 Hypokalemia; E78.5 Hyperlipidemia, unspecified; E11.9 Type 2 diabetes mellitus without complications; F41.9 Anxiety disorder, unspecified; F32.9 Major depressive disorder, single episode, unspecified; L20.9 Atopic dermatitis, unspecified; Z79.82 Long term (current) use of aspirin; Z79.899 Other long term (current) drug therapy; Z87.891 Personal history of nicotine dependence

== ENCOUNTER 2017-06-12 18:39 | Emergency (ER) | payer MEDICARE ==
[~2017-06-12 18:39] MED LIST changes: +AMOX875T2 PO; +ASPI1TAB15 PO; +AUGM875T28 PO; +HYDR25TAB PO; +HYDR5LIQ2 PO; +METF500T13 PO; +METO1TAB32 PO; +NORCOTAB PO; +OCUVTAB4 PO; +SERT-138 PO; +SIMV20TA2 PO; +VENTAER; +VENTAER INH; +VITMTA PO
[2017-06-12 19:14] VITALS: BP 0/0
--- NOTE | 2017-06-12 19:19 | REP ---
Portable chest x-ray: Single AP view. History: Respiratory arrest. Comparison chest x-ray June 09, 2017. Findings: Endotracheal tube is seen in good position. A left subclavian [id number] catheter is noted with its tip in the expected location of the superior vena cava. EKG monitoring electrodes are seen. Mild cardiac enlargement is observed. Diffuse interstitial edema pattern is seen throughout the lung archer, more prominent than on the June 09, 2017 prior study. There is pleural thickening along the left lateral chest wall versus fluid. Impression: Diffuse interstitial edema or interstitial disease pattern more pronounced today than on 06/09. Endotracheal tube in good position. Left pleural fluid versus pleural thickening again seen. Signed by Yonatan Diaz MD 06/12/2017 09:44 P
[2017-06-12] MEDS ORDERED: EPINEPHrine 1MG/10ML SYRINGE 1.5IN ONE (19:30)
== END 2017-06-12 21:36 | disposition home or self-care (01) ==
LOC: M ED 18:39
DX: I46.9 Cardiac arrest, cause unspecified (principal); I10 Essential (primary) hypertension; E11.9 Type 2 diabetes mellitus without complications